=== PATIENT | female | born 1930 | race Caucasian/White ===

== ENCOUNTER 2017-10-05 17:41 | Inpatient (IN) | payer MEDICARE, OTHER ==
[~2017-10-05] VITALS: Ht 160 cm; Wt 55.3 kg
--- NOTE | ~2017-10-05 | PROC ---
[address] [address] PROCEDURE REPORT Name: CURTIS LIN Room: [address] IN .R.#: [id number] Admission: 10/05/17 Attend Phys: Hugo Aguilar Discharge: Date of : 32 Report #: [id number] THIS REPORT FOR: //name// For GI report, please see the Provation report in Perceptive 7 content. By: [facility] Records Staff RICH /DUKE
[~2017-10-05 17:41] MED LIST: ASPIR 8181 MG PO; BP MED; DIABETES MED; HYDROCODONE-AP1 EAC6; IMDUR 30 MG TAB30 M1 PO; LIPITOR 20 MG T20 M1 PO; LOPRESSOR25 PO; LOSARTAN-HCTZ1 EAC2 PO; METFORMIN HCL500 MG PO; NITROGLYCERIN0.4 MG SUBLING; NORCO 10-325 T1 EACH PO; PLAVIX 75 MG TA75 MG PO; TYLENOL325 MG PO; VALIUM2 MG PO
[2017-10-05 17:43] VITALS: BP 110/60
[2017-10-05 18:17] LABS: URINE BILIRUBIN NEGATIVE (Negative); URINE BLOOD NEGATIVE (Negative); URINE CLARITY CLEAR; URINE COLOR YELLOW; URINE GLUCOSE-RANDOM NEGATIVE (Negative); URINE KETONES TRACE (Negative); URINE LEUKOCYTES-REFLEX NEGATIVE (Negative); URINE NITRITE-REFLEX NEGATIVE (Negative); URINE PROTEIN NEGATIVE (Negative); URINE SPECIFIC GRAVITY >= 1.030 (1.005-1.030); URINE UROBILINOGEN 0.2 E.U./dl (0.2-1.0)
[2017-10-05 18:25] LABS: HEMATOCRIT 24.3 % (37.0-47.0); MCH 26.8 pg (26.0-34.0); MCHC 32.9 g/dL (28.0-37.0); MCV 81.6 fL (80.0-100.0); MPV 7.7 fl. (7.2-11.1); NUCLEATED RBCS 0 /100WBC; PLATELET COUNT* 299 thou/uL (150-400); RBC 2.97 mil/uL (4.20-5.00); RDW-CV 14.9 % (10.5-14.5); WBC 15.3 thou/uL (4.0-11.0)
[2017-10-05 18:47] LABS: INR 1.1; PROTIME 10.8 Seconds (9.20-11.50)
[2017-10-05 18:48] LABS: ANION GAP 8 mmol/L (7-16); BUN 47 mg/dL (7-18); CHLORIDE 105 mmol/L (98-107); CO2 26 mmol/L (21-32); CREATININE 0.9 mg/dL (0.6-1.3); GLUCOSE 272 mg/dL (70-99); POTASSIUM 4.2 mmol/L (3.5-5.1); SODIUM 139 mmol/L (136-145)
[2017-10-05 18:54] LABS: INFLUENZA A ANTIGEN None Detected (None Detect); INFLUENZA B ANTIGEN None Detected (None Detect)
[2017-10-05 19:02] LABS: ALBUMIN 3.3 g/dL (3.4-5.0); ALKALINE PHOSPHATASE 52 U/L (46-116); LIPASE 48 U/L (73-393); NT-PRO BRAIN NAT PEPTIDE 550 pg/mL (<300); SGOT 11 U/L (15-37); SGPT 13 U/L (30-65); TOTAL BILIRUBIN 0.3 mg/dL (<0.1-1.0); TOTAL PROTEIN 6.6 g/dL (6.4-8.2); TROPONIN-I LEVEL <0.06 ng/mL (<0.06)
[2017-10-05 19:05] LABS: ABSOLUTE EOSINOPHILS 0.2 thou/uL (0.0-0.7); ABSOLUTE LYMPHOCYTES 1.4 thou/uL (0.8-5.3); ABSOLUTE MONOCYTES 0.3 thou/uL (0.0-1.2); ABSOLUTE NEUTROPHILS 13.5 thou/uL (1.6-8.1)
[2017-10-05 19:06] LABS: PLATELET ESTIMATE ADEQUATE
[2017-10-05 19:07] LABS: HYPOCHROMASIA Occasional
[2017-10-05 21:18] VITALS: BP 121/60
[2017-10-05 22:07] LABS: HEMATOCRIT 20.5 % (37.0-47.0)
[2017-10-05 22:25] LABS: HEMOGLOBIN 6.7 gm/dL (12.0-15.0)
[2017-10-06] VITALS (8 sets, daily range): BP systolic 107–170; BP diastolic 42–87
--- NOTE | 2017-10-06 05:23 | NUR ---
PT ADMITTED FROM ER. HISTORY AND ASSESSMENT COMPLETE. PT ORIENTED TO ROOM, CALL LIGHT, AND BED CONTROLS. SR ON MONITOR. 2 UNITS PRBC'S INFUSED PER ORDER FOR HGB 6.6. PT TOLERATED WELL. CONTINUOUS PULSE OX IN PLACE WHILE BLOOD WAS INFUSING. PRN PAIN MEDICATION GIVEN PER PT REQUEST. O2 2L NC. FALL PRECAUTIONS IN PLACE INCLUDING BED ALARM. CALL LIGHT IN REACH. BED IN LOWEST POSITION.
[2017-10-06 06:22] LABS: HEMOGLOBIN 9.1 gm/dL (12.0-15.0)
--- NOTE | 2017-10-06 09:00 | NUR ---
PT IS TRACING SR ON THE MONITOR. VSS, ASSUMED CARE OF PT IN THE AM, ASSESSMENT PERFORMED AND CHARTED, FALL PRECAUTIONS IN PLACE AND CALL LIGHT IN REACH, PT IS A&O4 AND UP WITH ONE, HAS SOTO IN PLACE AND IS DRAINING, PT IS TRACING SR ON THE MONITOR AND HAS PAIN IN HER BACK AND LEGS, PT IS TO HAVE EDG ON DAY OF CARE, WILL FOLLOW WITH PLAN OF CARE.
--- NOTE | 2017-10-06 12:00 | NUR ---
MET WITH PT AND SON/JESSICA TO DISCUSS HOME SITUATION/DC PLANNING. PT LIVES ALONE, SON/JESSICA LIVES IN A MOBILE HOME ONE HER PROPERTY. PT STATES SHE IS INDEPENDENT AND ABLE TO DO HER OWN ADLS. COOKS, CLEANS AND MANAGES HER HOME. PT USES WALKER. 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 JESSICA CHECKS ON HER DAILY AND SON SAWYER CHECKS ON HER AND MANAGES PT'S FINANCES. PT STAETS SHE HAS A WILL BUT NOT SURE IF SHE HAS A DPOA. DISCUSSED AND ASSISTED IN FILLING OUT. ANSWERED PT'S QUESTIONS. SHE WANTED BOTH HER SONS ON IT. NOTARIZED, PLACED COPY ON CHART AND GAVE COPIES AND ORIGINAL TO JESSICA IN [place]. DISCUSSED POSSIBLE DC NEEDS INCLUDING HH. PT WORRIED ABOUT HER PETS. WILL FOLLOW
[2017-10-06 12:59] LABS: HEMATOCRIT 27.5 % (37.0-47.0); HEMOGLOBIN 9.5 gm/dL (12.0-15.0)
--- NOTE | 2017-10-06 16:16 | EKG ---
[place] [address] ELECTROCARDIOGRAM REPORT Name: CURTIS LIN Room: [address] ADM IN .R.#: [id number] Admission: 10/05/17 Attend Phys: Hugo Aguilar Discharge: Date of : 31 Report #: [id number] THIS REPORT FOR: //name// [facility] ED Test Date: 2017-10-05 Test Time: 18:13:25 Pat Name: CURTIS LIN Department: Room: [facility] Gender: F Warehouse Supervisor: Srinivasa REEDER : 1930 Requested By: Hugo Lugo Order Number: [id number] MD: William Andrade Measurements Intervals [place] Rate: 79 P: 48 CT: 147 QRS: -50 QRSD: 99 T: 111 QT: 380 QTc: 436 Interpretive Statements Sinus rhythm Atrial premature complex Left anterior fascicular block Abnormal R-wave progression, early transition Borderline repolarization abnormality Compared to ECG 11/07/2014 09:38:28 Atrial premature complex(es) now present Myocardial infarct finding no longer present T-wave abnormality no longer present Possible ischemia no longer present Prolonged QT interval no longer present Electronically Signed On 10-06-2017 16:16:32 BULBS FARMWORKER by William Andrade [email or web address] <ELECTRONICALLY SIGNED> By: William Andrade MD, [facility] 10/06/17 1616 12 12 William Andrade MD, [facility] /EPI
--- NOTE | 2017-10-06 18:24 | NUR ---
VSS, PT IS PROGRESSING TOWARDS GOAL, PT HAS COMPLETED EGD AND IS ON A CLD AT THIS TIME. HOURLY ROUNDS COMPLETED, PT HAS SOTO IN AND REFUSSES TO LET ME TAKE OUT CHARLES, HOURLY ROUNDS COMPLETED, PT IS TRACING SR ON THE MONITOR MONITOR ON RA AND UP WITH ONE AND IS INCONT,
[2017-10-07] VITALS: BP 137/58
[2017-10-07 01:06] LABS: HEMATOCRIT 24.3 % (37.0-47.0); HEMOGLOBIN 8.1 gm/dL (12.0-15.0)
[2017-10-07 04:00] VITALS: BP 127/49
[2017-10-07 05:17] LABS: HEMATOCRIT 24.6 % (37.0-47.0); HEMOGLOBIN 8.3 gm/dL (12.0-15.0); MCH 27.1 pg (26.0-34.0); MCHC 33.7 g/dL (28.0-37.0); MCV 80.2 fL (80.0-100.0); RBC 3.07 mil/uL (4.20-5.00); RDW-CV 15.6 % (10.5-14.5)
--- NOTE | 2017-10-07 05:17 | NUR ---
PT CARE ASSUMED AFTER REPORT. ASSESSMENT COMPLETE. SR/SB ON MONITOR. PROTONIX GTT INFUSING. SOTO TO DD STILL IN PLACE. PT REFUSES REMOVAL. DENIES PAIN. NO BLOODY STOOLS REPORTED OR OBSERVED. FALL PRECAUTIONS IN PLACE INCLUDING BED ALARM. CALL LIGHT IN REACH. BED IN LOWEST POSITION. PROGRESSING TOWARDS GOALS.
[2017-10-07 08:00] VITALS: BP 167/72
--- NOTE | 2017-10-07 08:00 | NUR ---
AM ASSESSMENT COMPLETE, DEFER TO COMPUTER CHARTING. DRY CLEANER PRESSER TRACKING SR/SB. ALERT ORIENTED, DENIES CHEST PAIN, NAUSEA OR ANY DISCOMFORT AT THIS TIME. IV PROTONIX INFUSING. HOB ELEVATED, CALL LIGHT WTIHIN REACH.
--- NOTE | 2017-10-07 11:24 | S ---
[place] [address] SURGICAL PATH RPT PROCEDURE Name: DENA LIN Room: [address] IN ..#: [id number] Admission: 10/05/17 Date of : 31 Discharge: Report #: [id number] Path Case #: [id number] PATHOLOGY REPORT COLLECTION DATE: 10/06/2017 RECEIVED DATE: 10/06/2017 SUBMITTING PHYS: Dr. An Aguilar OTHER PHYS: Dr. Fahad Jack SPECIMEN(S) RECEIVED: A.Gastric body B.Gastric fundus ulcer * * * * * * * * * * * * FINAL DIAGNOSIS: A. Gastric body: - Severe chronic and active gastritis with abundant Helicobacter pylori organisms, negative for granulomas and dysplasia. B. Gastric fundus ulcer: - Severe chronic and active gastritis with few Helicobacter pylori organisms, negative for granulomas and dysplasia. (GRACY:[facility]; 10/07/2017) PATHOLOGIST: Jose Nicholas M.D. REPORT ELECTRONICALLY SIGNED BY: Jose Nicholas M.D. DATE/TIME: 10/07/2017 11:23 * * * * * * * * * * * * GROSS PATHOLOGY: A. Received in formalin labeled "Dena Lin, gastric body," are 3 segments of combs soft tissue measuring 1.5 x 0.5 x 0.2 cm in aggregate dimensions and ranging from 0.1 to 0.5 cm in maximum dimension. The specimen is submitted entirely in cassette A1. B. Received in formalin labeled "Dena Chiles, gastric fundus ulcer," are 2 segments of combs soft tissue measuring 1.3 x 0.2 x 0.2 cm in aggregate dimensions and measuring 0.6 cm each in maximum dimension. The specimen is submitted entirely in cassette B1. ([facility]; 10/06/2017) CLINICAL HISTORY: None provided INITIAL CPT CODE(S): A; 01111, 32556 B; 38059, [address] [place] [address] SURGICAL PATH RPT PROCEDURE Name: DENA LIN Room: [address] IN [facility].#: [id number] Admission: 10/05/17 Date of : 31 Discharge: Report #: [id number] Path Case #: [id number] Professional services performed by [facility] at [facility], [facility] [address]. Technical services performed by [facility] at [address] [place] [address], [address], [place] [address]. [facility] [address] [place] [address] PHONE: [phone] DIRECTOR: Kendrick Fowler M.D. * * * END OF REPORT * * *
[2017-10-07 11:57] VITALS: BP 153/63
[2017-10-07 13:18] LABS: HEMATOCRIT 27.1 % (37.0-47.0); HEMOGLOBIN 9.1 gm/dL (12.0-15.0)
[2017-10-07 15:59] VITALS: BP 163/62
--- NOTE | 2017-10-07 16:02 | NUR ---
SENIOR NET ENGINEER TRACKING WITH NO CHANGE IN RHYTHM. IV PROTONIX INFUSING PER ORDERS. DIET ADVANCED TO FULL LIQUID, NO COMPLAINTS OF NAUSEA OR PAIN TO NURSING. FAMILY AT BEDSIDE VISITING. CALL LIGHT WITHIN REACH. WILL CONTINUE WITH PLAN OF CARE.
[2017-10-07 20:15] VITALS: BP 163/59
[2017-10-08] VITALS (7 sets, daily range): BP systolic 139–197; BP diastolic 56–92
[2017-10-08 01:12] LABS: HEMATOCRIT 23.6 % (37.0-47.0)
[2017-10-08 05:15] LABS: HEMATOCRIT 23.3 % (37.0-47.0); MCH 27.6 pg (26.0-34.0); MCHC 34.4 g/dL (28.0-37.0); MCV 80.1 fL (80.0-100.0); MPV 7.8 fl. (7.2-11.1); RBC 2.91 mil/uL (4.20-5.00); RDW-CV 15.7 % (10.5-14.5); WBC 6.8 thou/uL (4.0-11.0)
--- NOTE | 2017-10-08 05:26 | NUR ---
ASSUMED CARE AROUND 1930. PT A/OX4 AND PLEASANT. PT TEARFUL LAST NIGHT STATING SHE THOUGHT SHE WAS A BURDEN TO THE STAFF HERE, REASSURED PT THAT SHE WAS NOT AT ALL, APPEARED TO REST AFTER THAT. TELE MONITOR TRACING SR/SB WITH HR DOWN TO 50'S. ON ROOM AIR. PROTONIX GTT INFUSING. PT DENIED PAIN BUT TAKES NORCO AT HS FOR SLEEP PER PT. VSS. VOIDED PER TOILET, UP SBA. FULL LIQ DIET, TOLERATING WELL. NO CONCERNS VOICED. CALL LIGHT IN REACH, BEDALARM IN PLACE, WILL CONTINUE WITH PLAN OF CARE.
[2017-10-08 05:44] LABS: CREATININE 0.6 mg/dL (0.6-1.3); POTASSIUM 3.4 mmol/L (3.5-5.1)
--- NOTE | 2017-10-08 10:20 | NUR ---
PT'S MEDICAL CHART REVEIWED AND STATUS DISCUSSED W/ NSG. PT DEMO INDEPENDENT BED MOB SKILLS, MOD INDEP TRANSFERS AND GAIT W/ RW SUPPORT. SON PRESENT AND VOICES NO CONCERNS W/ DISCHARGE TO HOME. ACUTE SKILLED PT SERVICES ARE NOT INDICATED AT THIS TIME.
--- NOTE | 2017-10-08 11:20 | NUR ---
CONTINUE TO FOLLOW, PT STATES FEELING IMPROVED BUT STILL 'HUNGRY.' HOPES TO GO HOME TOMORROW. DISCUSSED DC PLAN WITH HER AND HH. PT IS IN AGREEMENT, DISCUSSED OPTIONS AND WOULD LIKE TO USE [facility]. CALLED AND FAXED INITIAL REFERRAL TO [facility]. THEY WILL NEED CALLED AND DC ORDERS FAXED TO THEM AT [facility] [phone] FAX [phone]
[2017-10-08 14:17] LABS: HEMATOCRIT 29.5 % (37.0-47.0); HEMOGLOBIN 9.8 gm/dL (12.0-15.0)
[2017-10-08 14:24] LABS: CALCIUM 8.5 mg/dL (8.5-10.1); CREATININE 0.7 mg/dL (0.6-1.3); MAGNESIUM 1.7 mg/dL (1.8-2.4); POTASSIUM 3.8 mmol/L (3.5-5.1)
--- NOTE | 2017-10-08 19:00 | NUR ---
RECEIVED REPORT. ASSUMED CARE OF PT AT 0730. VSS. O2 SAT 99% ON RA. PT A&O X4, A BIT ANXIOUS. METER MAINTENANCE PERSON IN PLACE TRACING SR. AM ASSESSMENT AND VITALS COMPLETED CHARTED. IV PATENT AND INFUSING PROTONIX. PT HAS DENIED PAIN OR DISCOMFORT THROUGHOUT THE SHIFT. PT DIET PROGRESSED TO REGULAR DIET. PT HAPPY ABOUT DIET PROGRESSION AND EATING WITHOUT ISSUE. PT HAD SMALL TARRY STOOL THIS AFTERNOON; PT VERY ANXIOUS ABOUT IT. DR VERNON NOTIFIED; NO NEW ORDERS RECEIVED. HGB STABLE. REASSURANCE AND EDUCATION GIVEN TO PT, PT FELT SOME BETTER AFTER DISCUSSION. PT UP SEVERAL TIMES TO BATHROOM WITH MINIMAL ASSISTANCE. PT WORKED WITH P.T. TODAY. PT SLOWLY PROGRESSING TOWARD GOALS. FALL PRECAUTIONS IN PLACE. CALL LIGHT IS WITHIN REACH, HOURLY ROUNDING PERFORMED.
[2017-10-09] VITALS (8 sets, daily range): BP systolic 151–180; BP diastolic 69–87
[2017-10-09 01:03] LABS: HEMATOCRIT 24.8 % (37.0-47.0); HEMOGLOBIN 8.3 gm/dL (12.0-15.0); MCH 27.5 pg (26.0-34.0); MCHC 33.7 g/dL (28.0-37.0); MCV 81.6 fL (80.0-100.0); MPV 7.5 fl. (7.2-11.1); RBC 3.04 mil/uL (4.20-5.00); RDW-CV 15.7 % (10.5-14.5); WBC 7.4 thou/uL (4.0-11.0)
[2017-10-09 01:41] LABS: ALBUMIN 2.4 g/dL (3.4-5.0); CALCIUM 8.1 mg/dL (8.5-10.1); CREATININE 0.7 mg/dL (0.6-1.3); MAGNESIUM 1.6 mg/dL (1.8-2.4); POTASSIUM 3.8 mmol/L (3.5-5.1); TOTAL BILIRUBIN 0.3 mg/dL (<0.1-1.0); TOTAL PROTEIN 4.8 g/dL (6.4-8.2)
--- NOTE | 2017-10-09 05:55 | NUR ---
ASSUMED CARE AROUND 1930. PT A/OX4 AND PLEASANT, APPEARED TO REST MOST THE NIGHT. TELE MONITOR TRACING SR/SB WITH HR DOWN TO 50'S. ON ROOM AIR. PROTONIX GTT INFUSING PER OCT. UP SBA WITH WALKER TO BR. FALL PRECAUTIONS IN PLACE. NO BM THIS SHIFT. DENIED ANY PAIN. BP SOMEWHAT ELEVATED THIS SHIFT BUT STABLE. SEE CHARTING. CALL LIGHT IN REACH, BEDALARM ON, WILL CONTINUE WITH PLAN OF CARE.
--- NOTE | 2017-10-09 08:00 | NUR ---
RECEIVED REPORT. ASSUMED CARE OF PT AT 0730. VSS. CARDIAC MONITORING IN PLACE SR. AM ASSESSMENT AND VITALS COMPLETED CHARTED. PT ALERT AND OREINTED. PT ON RA. IV PROTONIX GTT INFUSING. PT DENIES ANY COMPLAITNS OF PAIN OR DISCOMFORT THIS AM. PT IS TOLERTING DIET WELL. PT IS UP WITH STAND BY ASSITANCE WITH WALKER TO THE BATHROOM. PT REPORTS FEELING READY TO GO HOME TODAY. DISCUSSED PLAN OF CARE WTIH PT. PT COMMUNICATES UNDERSTANDING. PT'S MG BEING REPLACED PER PROTOCOL. CALL LIGHT IS WITHIN REACH. WILL CONTINUE TO MONTIOR FOR DURAITON OF SHIFT.
--- NOTE | 2017-10-09 17:23 | NUR ---
VSS. PT MADE MED-SURG STATUS. PT PROGRESSING TOWARDS GOALS. PT REMAINS ALERT AND OREITNED. PT WAS FRUSTRATED WITH NOT BEING ABLE TO DISCHARGE TODAY. REASSURANCE PROVIDED. PT INFORMED OF PLAN OF CARE. NO IV ACCESS. PT WAS UP TO CHAIR THIS SHIFT. PT PLANS TO DISCHARGE TOMORROW. CALL LIGHT IS WITHIN REACH. WILL CONTINUE TO MONITOR FOR DURAITON OF SHIFT.
[2017-10-10 04:00] VITALS: BP 134/46
[2017-10-10 06:00] LABS: HEMATOCRIT 24.2 % (37.0-47.0); HEMOGLOBIN 8.2 gm/dL (12.0-15.0); MCH 27.3 pg (26.0-34.0); MCHC 33.8 g/dL (28.0-37.0); MPV 7.8 fl. (7.2-11.1); RBC 2.99 mil/uL (4.20-5.00); RDW-CV 15.9 % (10.5-14.5); WBC 7.2 thou/uL (4.0-11.0)
--- NOTE | 2017-10-10 06:09 | NUR ---
ASSUMED CARE AROUND 1930. A/OX4 AND PLEASANT, STATING SHE'S READY TO GO HOME. ANXIOUS AT TIMES BUT APPEARED TO REST WELL TONIGHT. MED/SURG STATUS. VSS, DENIES PAIN. ON ROOM AIR. NO IV ACCESS. UP AD SALINA WITH WALKER, STEADY ON FEET. NO NEW CONCERNS VOICED. CALL LIGHT IN REACH, WILL CONTINUE WITH PLAN OF CARE.
[2017-10-10 06:27] LABS: CALCIUM 8.1 mg/dL (8.5-10.1); CREATININE 0.7 mg/dL (0.6-1.3); MAGNESIUM 1.7 mg/dL (1.8-2.4); POTASSIUM 3.8 mmol/L (3.5-5.1)
--- NOTE | 2017-10-10 08:00 | NUR ---
RECEIVED REPORT. ASSUMED CARE OF PT AT 0730. VSS. PT MED-SURG STATUS. PT ALERT AND ORIENTED X4. PT ON RA. NO IV ACCESS. PT DENIES ANY COMPLAINTS OF PAIN OR DISCOMFORT. PT IS UP INDEPNDENTLY WITH WALKER. PT REPORTS FEELING WELL TODAY AND READY FOR DISCHARGE. PT INFORMED OF PLAN OF CARE. CALL LIGHT IS WITHIN REACH .WILL CONTINUE TO MONITOR.
[2017-10-10 08:04] VITALS: BP 158/81
[2017-10-10] MEDS ORDERED: PROTONIX40 M1 PO (13:03)
--- NOTE | 2017-10-10 13:46 | NUR ---
DISCHARGE ORDERS RECEIVED AND PREPARED. IV AND CARDIAC MONITORING DISCONTINUED. PT EDUCATED ON DISCHARGE INSTRUCTIONS. PT COMMUNICATES UNDERSTANDING. PT GIVEN COPY OF DISCHARGE PAPERWORK. SCRIPTS CALLED INTO PT'S PHARMCY. PT'S PERSONAL BELONGINGS GATHERED. MEDICATION BROUGHT UP FROM PHARMACY.
--- NOTE | 2017-10-28 14:50 | CON ---
[address] [address] CONSULTATION Name: CURTIS LIN Room: [address] IN .R.#: [id number] Admission: 10/05/17 Attend Phys: Hugo Aguilar Discharge: 10/10/17 Date of : 31 Report #: [id number] THIS REPORT FOR: //name// CC: Candice Marti DATE OF SERVICE: 10/06/2017 ADDENDUM This is an 87-year-old female with no previous history of endoscopic evaluation who presented to hospital with severe anemia. The patient apparently has had dark stool yesterday prior to admission. Her hemoglobin found to be around 6.9. She was transfused with 2 units of packed RBC and her hemoglobin is around 9. She complains of lot of back pain and neck pain and reports that she takes pain medication regularly. She also reports anorexia and weakness and weight loss of 20 pounds. We will go ahead and perform an upper endoscopy, and if this is negative, we may consider colonoscopy. The patient is agreeable with plan. <ELECTRONICALLY SIGNED> By: An Aguilar MD 10/28/17 1450 1558 0450An Aguilar MD /nt
--- NOTE | 2017-10-28 14:50 | CON ---
[address] [address] CONSULTATION Name: CURTIS LIN Room: [address] IN M.R.#: [id number] Admission: 10/05/17 Attend Phys: Hugo Aguilar Discharge: 10/10/17 Date of : 31 Report #: [id number] THIS REPORT FOR: //name// CC: Candice Jack DO Fahad Marti DICTATED BY: Deb Agrawal [facility] DATE OF SERVICE: 10/06/2017 Please note at the time of this dictation, the patient was seen and physically examined by myself. REASON FOR CONSULTATION: GI bleed. HISTORY OF PRESENT ILLNESS: This is an 87-year-old female who presented to the Emergency Room with an abrupt onset of weakness. She called EMS due to increased weakness while she was sitting on the toilet and EMS noted that she had some really dark red to black stool that was noted in the toilet. She also had a syncopal episode earlier in the day as well. She has not been eating or drinking much over the last several days and she does complain of some epigastric discomfort. The patient has never had an EGD or colonoscopy done in the past. She does state that she has not noticed that her stools are dark, but she does not pay any attention to that. She states she has not had any nausea or any vomiting at this time. She lost her 2 years ago and over the last year and her son is agreeable that she has just not been eating and taking care of herself like she should. ALLERGIES: No known drug allergies. MEDICATIONS: From home include Valium, Glucophage, Lipitor, aspirin, Plavix, Nitrostat, Tylenol, Imdur, Lopressor and losartan. PAST MEDICAL HISTORY: Hypertension, diabetes, restless legs syndrome, coronary artery disease. PAST SURGICAL HISTORY: Hysterectomy, back surgery, and had a stent placed in 2015. FAMILY HISTORY: Negative for any GI or female cancers. SOCIAL HISTORY: She lives at home alone and her son's check on her. Denies any tobacco, alcohol or illegal drug use at this time. REVIEW OF SYSTEMS: Twelve-point review [place] [address] CONSULTATION Name: CURTIS LIN Room: [address]#: [id number] Admission: 10/05/17 Attend Phys: Hugo Aguilar Discharge: 10/10/17 Date of : 31 Report #: [id number] except what is mentioned in the HPI. PHYSICAL EXAMINATION: VITAL SIGNS: Temperature 36.8, pulse 82, respirations 18, blood pressure 157/67. HEART: Regular rate and rhythm with murmur noted. LUNGS: Diminished, but clear. ABDOMEN: Soft, positive bowel sounds in all 4 quadrants with some epigastric tenderness noted to palpation. LABORATORY DATA: Hemoglobin on admission was 9, she fell down to 6.7, got 2 units of blood, she is now up to 9.1; hematocrit 27; white count of 15.3; platelets 299. Sodium 139, potassium 4.2, chloride 105, CO2 26, BUN is 47, creatinine 0.9, GFR is 59 and glucose is 272. PT is 10.8, INR is 1.1. IMPRESSION: 1. Gastrointestinal bleed, upper. 2. Melanotic stool. 3. Acute anemia. 4. Leukocytosis. 5. Anticoagulant therapy, Plavix secondary to stents. 6. Weight loss over the past year. PLAN: 1. EGD today with Dr. Aguilar. 2. Labs tomorrow CBC and CMP. 3. Further recommendations to be made once the procedure has been performed. Thank you for allowing us to participate in this patient's care. Please do not hesitate to call with any questions in regard to this consult. <ELECTRONICALLY SIGNED> By: An Aguilar MD 10/28/17 1450 1229 1941An Aguilar MD /nt
== END 2017-10-10 14:34 | disposition home health service (06) | DRG 811 ==
LOC: M.ERS 17:41 → M.TBA-ER 18:49 → M.2W 18:49
PROVIDERS: Emergency Medicine; Family Medicine; Internal Medicine Gastroenterology; Nurse Practitioner Adult Health; ADMIT Internal Medicine
PROC: 0DB68ZX Excision of Stomach, Via Natural or Artificial Opening Endoscopic, Diagnostic (ICD-10-PCS; principal; 2017-10-06)
PROC: 30233N1 Transfusion of Nonautologous Red Blood Cells into Peripheral Vein, Percutaneous Approach (ICD-10-PCS; 2017-10-06)
DX: D62 Acute posthemorrhagic anemia (principal); K25.0 Acute gastric ulcer with hemorrhage; I10 Essential (primary) hypertension; E11.9 Type 2 diabetes mellitus without complications; G25.81 Restless legs syndrome; I25.10 Atherosclerotic heart disease of native coronary artery without angina pectoris; Z60.2 Problems related to living alone; K44.9 Diaphragmatic hernia without obstruction or gangrene; K29.70 Gastritis, unspecified, without bleeding; E87.6 Hypokalemia; D64.9 Anemia, unspecified; Z79.01 Long term (current) use of anticoagulants; Z95.5 Presence of coronary angioplasty implant and graft; Z90.710 Acquired absence of both cervix and uterus; I25.2 Old myocardial infarction

== ENCOUNTER 2017-11-23 05:50 | Inpatient (IN) | payer MEDICARE, OTHER ==
[~2017-11-23] VITALS: Ht 152.4 cm; Wt 69.9 kg
[~2017-11-23 05:50] MED LIST changes: +PROTONIX40 M1 PO
[2017-11-23 05:53] VITALS: BP 210/110
[2017-11-23 06:37] LABS: HEMATOCRIT 34.9 % (37.0-47.0); HEMOGLOBIN 11.4 gm/dL (12.0-15.0); MCH 25.7 pg (26.0-34.0); MCHC 32.6 g/dL (28.0-37.0); MCV 78.7 fL (80.0-100.0); MPV 7.4 fl. (7.2-11.1); NUCLEATED RBCS 0 /100WBC; PLATELET COUNT* 304 thou/uL (150-400); RBC 4.43 mil/uL (4.20-5.00); RDW-CV 16.3 % (10.5-14.5); WBC 11.3 thou/uL (4.0-11.0)
[2017-11-23 06:42] LABS: URINE BILIRUBIN NEGATIVE (Negative); URINE BLOOD NEGATIVE (Negative); URINE CLARITY CLEAR; URINE COLOR YELLOW; URINE GLUCOSE-RANDOM NEGATIVE (Negative); URINE KETONES TRACE (Negative); URINE LEUKOCYTES-REFLEX NEGATIVE (Negative); URINE NITRITE-REFLEX NEGATIVE (Negative); URINE PROTEIN NEGATIVE (Negative); URINE SPECIFIC GRAVITY 1.015 (1.005-1.030); URINE UROBILINOGEN 0.2 E.U./dl (0.2-1.0)
--- NOTE | 2017-11-23 06:46 | NUR ---
Unable to start an IV times 6 attempts. Pt refuses further attempts
[2017-11-23 06:48] LABS: ANION GAP 9 mmol/L (7-16); BUN 11 mg/dL (7-18); CALCIUM 9.3 mg/dL (8.5-10.1); CHLORIDE 101 mmol/L (98-107); CO2 25 mmol/L (21-32); CREATININE 0.8 mg/dL (0.6-1.3); GLUCOSE 157 mg/dL (70-99); POTASSIUM 3.8 mmol/L (3.5-5.1); SODIUM 135 mmol/L (136-145)
[2017-11-23 06:49] LABS: INR 1.1; PROTIME 10.7 Seconds (9.20-11.50)
[2017-11-23 06:58] LABS: ALBUMIN 3.5 g/dL (3.4-5.0); ALKALINE PHOSPHATASE 85 U/L (46-116); LIPASE 48 U/L (73-393); NT-PRO BRAIN NAT PEPTIDE 5445 pg/mL (<300); SGOT 12 U/L (15-37); SGPT 14 U/L (30-65); TOTAL BILIRUBIN 0.6 mg/dL (<0.1-1.0); TOTAL PROTEIN 7.5 g/dL (6.4-8.2); TROPONIN-I LEVEL <0.06 ng/mL (<0.06)
[2017-11-23 07:02] LABS: ABSOLUTE LYMPHOCYTES 0.9 thou/uL (0.8-5.3); ABSOLUTE MONOCYTES 0.5 thou/uL (0.0-1.2); ABSOLUTE NEUTROPHILS 9.9 thou/uL (1.6-8.1); PLATELET ESTIMATE ADEQUATE
[2017-11-23 07:03] LABS: ANISOCYTOSIS 1+; POIKILOCYTOSIS 1+
--- NOTE | 2017-11-23 08:16 | NUR ---
RAYO AND OKSANA NOTIFIED UPON PT RETURN FROM CT. PT WAS NOT CONNECTED TO MONITOR RAYO WAS TAKING HER TO THE RESTROOM
--- NOTE | 2017-11-23 10:00 | NUR ---
VSS, ASSUMED CARE OF PT FROM ED, ASSESSMENT PERFORMED AND CHARTED, FALL PRECAUTIONS IN PLACE AND CALL LIGHT IN REACH, PT IS A&O4 AND UP WITH STAND BY, PT HAS PAIN IN HER ADM, TRACING SR ON THE MONITOR AND ON RA, PT GOAL IS TO DECREASE PAIN, WILL FOLLOW WITH PLAN OF CARE.
[2017-11-23 10:42] VITALS: BP 173/108
--- NOTE | 2017-11-23 11:56 | NUR ---
VSS, ASSUMED CARE OF PT FROM ED, ASSESSMENT PERFORMED AND CHARTED, FALL PRECAUTIONS IN PLACE AND CALL LIGHT IN REACH, PT IS A&O4, TRACING SR ON THE MONITOR, ON RA AND IS UP WITH STAND BY. PT GOAL IS TO DECREASE CHEST PAIN AND SIT UP TO CHAIR FOR MEALS, PT STATES PAIN IN CHEST AND ABDOMINE, WILL FOLLOW WITH PLAN OF CARE.
--- NOTE | 2017-11-23 14:51 | EKG ---
[place] [address] ELECTROCARDIOGRAM REPORT Name: CURTIS LIN Room: [address] ADM IN .R.#: [id number] Admission: 11/23/17 Attend Phys: Asif Reyna MD Discharge: Date of : 31 Report #: [id number] THIS REPORT FOR: //name// [facility] ED Test Date: 2017-11-23 Test Time: 06:02:30 Pat Name: CURTIS LIN Department: Room: [facility] Gender: F Senior Engineering Tech: JUAN : 1930 Requested By: Lorenza Hearn Order Number: [id number] MD: Ruben Condon Measurements Intervals [place] Rate: 79 P: 37 MS: 154 QRS: -45 QRSD: 105 T: 32 QT: 405 QTc: 465 Interpretive Statements Sinus rhythm Left anterior fascicular block Abnormal R-wave progression, late transition Left ventricular hypertrophy Compared to ECG 10/05/2017 18:13:25 Left ventricular hypertrophy now present Atrial premature complex(es) no longer present Electronically Signed On 11-23-2017 14:51:09 CDT by Ruben Condon [email or web address] <ELECTRONICALLY SIGNED> By: Ruben Condon MD, [facility] 11/23/17 1451 0602 0602 Ruben Condon MD, [facility] /EPI
--- NOTE | 2017-11-23 15:24 | 2DMMODE ---
[place] [address] 2 D/M-MODE ECHOCARDIOGRAM Name: CURTIS LIN Room: [address] IN [facility]#: [id number] Admission: 11/23/17 Attend Phys: Asif Reyna, Discharge: Date of : 31 Date of Service: 11/23/17 1524 Report #: [id number] THIS REPORT FOR: //name// APPROVED REPORT Study performed: 11/23/2017 14:09:28 EXAM: Comprehensive 2D, Doppler, and color-flow Echocardiogram Patient Location: In-Patient Room #: [facility] Status: routine BSA: 1.57 HR: 68 bpm BP: 173/108 mmHg Rhythm: NSR Other Information Study Quality: Good Indications Congestive Heart Failure 2D Dimensions LVEF(%): 54.56 (>50%) IVSd: 13.86 (7-11mm) LVOT Diam: 19.92 (18-24mm) LVDd: 47.54 mm PWd: 12.20 (7-11mm) Ascending Ao: 32.82 (22-36mm) LVDs: 34.10 (25-40mm) Aortic Root: 28.76 mm Mercado's LVEF: 54.56 % Volumes Left Atrial Volume (Systole) LA ESV Index: 41.10 mL/m2 Aortic Valve AoV Peak Omar.: 3.63 m/s AO Peak Gr.: 52.59 mmHg LVOT Max P.92 mmHg AO Mean Gr.: 33.55 mmHg LVOT Mean P.79 mmHg LVOT Max V: 0.99 m/s AO V2 VTI: 82.77 cm LVOT Mean V: 0.61 m/s CAROLEE (VTI): 0.83 cm2 LVOT V1 VTI: 21.98 cm Mitral Valve E/A Ratio: 0.64 [place] [address] 2 D/M-MODE ECHOCARDIOGRAM Name: CURTIS LIN Room: [address] IN [facility].#: [id number] Admission: 11/23/17 Attend Phys: Asif Reyna, Discharge: Date of : 31 Date of Service: 11/23/17 1524 Report #: [id number] MV Decel. Time: 151.25 ms MV E Max Omar.: 1.03 m/s MV PHT: 43.86 ms MVA (PHT): 5.02 cm2 TDI E/Lateral E': 14.71 E/Medial E': 20.60 Medial E' Omar.: 0.05 m/s Lateral E' Omar.: 0.07 m/s Pulmonary Valve PV Peak Omar.: 1.03 m/s PV Peak Gr.: 4.27 mmHg Tricuspid Valve TR Peak Gr.: 27.62 mmHg RVSP: 32.00 mmHg Left Ventricle The left ventricle is normal size. There is normal LV segmental wall motion. Mild concentric left ventricular hypertrophy. Left ventricular systolic function is normal. LVEF is 55-60%. Grade I - abnormal relaxation pattern. Right Ventricle The right ventricle is normal size. The right ventricular systolic function is normal. Atria Left atrium is mild to moderately dilated. The right atrium size is normal. Aortic Valve The Aortic valve is sclerotic. Mild aortic regurgitation. Severe aortic stenosis. Mitral Valve There is mitral annular calcification. Moderate mitral regurgitation. No evidence of mitral valve stenosis. Tricuspid Valve The tricuspid valve is normal in structure. Trace tricuspid regurgitation. The RVSP is 30-35 mmHg. Pulmonic Valve The pulmonary valve is normal in structure. There is no pulmonic [place] [address] 2 D/M-MODE ECHOCARDIOGRAM Name: CURTIS LIN Room: [address]#: [id number] Admission: 11/23/17 Attend Phys: Asif Reyna, Discharge: Date of : 32 Date of Service: 11/23/17 1524 Report #: [id number] Great Vessels The aortic root is normal in size. IVC is normal in size and collapses with >50% inspiration Pericardium There is no pericardial effusion. <Conclusion> The left ventricle is normal size. Mild concentric left ventricular hypertrophy. Left ventricular systolic function is normal. LVEF is 55-60%. Grade I - abnormal relaxation pattern. Left atrium is mild to moderately dilated. Mild aortic regurgitation. Severe aortic stenosis. Moderate mitral regurgitation. Trace tricuspid regurgitation. The RVSP is 30-35 mmHg. <ELECTRONICALLY SIGNED> By: David Ham MD, [facility] 11/23/17 1524 1524 1524 David Ham MD, FACC /INF
[2017-11-23 16:12] VITALS: BP 151/73
--- NOTE | 2017-11-23 16:31 | EKG ---
[place] [address] ELECTROCARDIOGRAM REPORT Name: CURTIS LIN Room: [address] ADM IN M.R.#: [id number] Admission: 11/23/17 Attend Phys: Asif Reyna MD Discharge: Date of : 31 Report #: [id number] THIS REPORT FOR: //name// [facility] Test Date: 2017-11-23 Test Time: 16:09:22 Pat Name: CURTIS LIN Department: Room: [address] Gender: F Recreation Facilities Supervisor: AGUSTÍN : 1930 Requested By: Collin العراقي Order Number: [id number] MD: Ruben Condon Measurements Intervals [place] Rate: 69 P: 21 MO: 143 QRS: -50 QRSD: 101 T: 28 QT: 349 QTc: 374 Interpretive Statements Sinus rhythm Ventricular premature complex Left anterior fascicular block Abnormal R-wave progression, late transition Left ventricular hypertrophy Compared to ECG 11/23/2017 06:02:30 Ventricular premature complex(es) now present Electronically Signed On 11-23-2017 16:31:21 CDT by Ruben Condon [email or web address] <ELECTRONICALLY SIGNED> By: Ruben Condon MD, [facility] 11/23/17 1631 1609 1609 Ruben Condon MD, [facility] /EPI
--- NOTE | 2017-11-23 17:28 | NUR ---
VSS, PT IS PROGRESSING TOWARDS GAOL, PT IS ASLEEP IN BED WILL CALL LIGHT IN REACH AND FALL PRECAUTIONS IN PLACE, PT IS TRACING SR ON THE MONITOR, ON RA, A&O4 UP WITH ONE AND CAN BE TEARFUL AT TIMES, WILL FOLLOW WITH PLAN OF CARE AND HOURLY ROUNDS,
[2017-11-23 20:00] VITALS: BP 156/60
[2017-11-24] VITALS: BP 143/56
[2017-11-24 04:00] VITALS: BP 167/72
[2017-11-24 05:03] LABS: ABSOLUTE LYMPHOCYTES 0.7 thou/uL (0.8-5.3); ABSOLUTE MONOCYTES 1.2 thou/uL (0.0-1.2); ABSOLUTE NEUTROPHILS 11.4 thou/uL (1.6-8.1); BASOPHILS 0.3 %; EOSINOPHILS 0.1 %; HEMATOCRIT 30.9 % (37.0-47.0); HEMOGLOBIN 10.3 gm/dL (12.0-15.0); MCH 25.8 pg (26.0-34.0); MCHC 33.2 g/dL (28.0-37.0); MCV 77.9 fL (80.0-100.0); MONOCYTES 8.8 %; MPV 7.8 fl. (7.2-11.1); NUCLEATED RBCS 0 /100WBC; PLATELET COUNT* 280 thou/uL (150-400); POLYS 85.8 %; RBC 3.97 mil/uL (4.20-5.00); WBC 13.3 thou/uL (4.0-11.0)
[2017-11-24 05:07] LABS: CALCIUM 8.6 mg/dL (8.5-10.1); CREATININE 0.8 mg/dL (0.6-1.3); POTASSIUM 3.5 mmol/L (3.5-5.1)
--- NOTE | 2017-11-24 05:31 | NUR ---
PT CARE ASSUMED AFTER REPORT. ASSESSMENT COMPLETE. SR ON MOITOR. DENIES PAIN. UP WITH ASSIST X1 TO BSC. FALL PRECAUTIONS IN PLACE INCLUDING BED ALARM. IVF INFUSING. PT REPORTS CONTINUED WEAKNESS. CALL LIGHT IN REACH. BED IN LOWEST POSITION. SLOW TO PROGRESS TOWARDS GOALS.
[2017-11-24 10:15] VITALS: BP 151/62
[2017-11-24 12:07] VITALS: BP 130/66
--- NOTE | 2017-11-24 13:58 | NUR ---
RECEIVED PT CARE 0700. PT IS ALERT AND ORIENTED X4. HARD OF HEARING. VSS. TOE POUNDER TRACING SR. PATIENT DENIES ANY SOA. O2 SAT 98% ON ROOM AIR. C/O BILATERAL LOWER ABDOMINAL PAINS. PRN PAIN MEDICATION GIVEN WITH GOOD RELIEF. IV CLOTTED OFF THIS AFTERNOON. INFUSION NURSE ON FLOOR TO PLACE NEW IV WITH ULTRASOUND AFTER MANY NURSE ATTEMPTS. AM ASSESSMENT CHARTED. MEDS PER OCT. NPO FOR SURGERY/GI/CARDIOLOGY CONSULTATIONS TO DETERMINE WHEN PATIENT CAN GO TO SURGERY FOR CHOLECYSTECTOMY. GI AND CV GAVE THEIR RECOMMENDATIONS. NOTIFIED SURGERY. RECEIVED ORDERS TO ADVANCE PATIENT TO A CLEAR LIQUID DIET IF TOLERATED AND POSSIBLE SURGERY ON WEDNESDAY. CALL LIGHT WITHIN REACH. WILL CONTINUE TO MONITOR.
--- NOTE | 2017-11-24 16:24 | NUR ---
CM ASSESSMENT: Pt is A&O. Pt's youngest son lives at home with her. Pt normally independent with ADLs, continues to cook and clean. Children provide transportation to run errands. Pt has a walker and cane at home that she uses, also has a wc in the basement, but hasn't need to use that to date. No home o2. No hx of SNF. Son in room and believes that Pt will need HH at or. CM to arrange at dc. Following.
[2017-11-24 16:54] VITALS: BP 128/63
--- NOTE | 2017-11-24 19:09 | NUR ---
PATIENT PROGRESSING TOWARDS GOALS. PAIN CONTROLLED WITH PRN PAIN MEDICATIONS. NO COMPLAINTS OF SOA. ADVANCED DIET TOLEATED TO LOW FAT. TOLERATING THE LOW FAT DIET WELL WITHOUT NAUSEA OR VOMITING. UP IN THE CHAIR MOST OF THE AFTERNOON. WILL CONTINUE PLAN OF CARE.
[2017-11-24 20:00] VITALS: BP 133/61
[2017-11-25 03:55] VITALS: BP 132/64
--- NOTE | 2017-11-25 05:21 | NUR ---
PT CARE ASSUMED AFTER REPORT. ASSESSMENT COMPLETE. M/S STATUS. IVF INFUSING. DENIES PAIN. PT FORGETFUL. UP WITH STB TO BATHROOM. FALL PRECAUTIONS IN PLACE INCLUDING BED ALARM. CALL LIGHT IN REACH. BED IN LOWEST POSITION. PROGRESSING TOWARDS GOALS.
[2017-11-25 07:30] VITALS: BP 141/70
[2017-11-25 07:57] LABS: HEMATOCRIT 27.5 % (37.0-47.0); HEMOGLOBIN 9.2 gm/dL (12.0-15.0); MCH 25.9 pg (26.0-34.0); MCHC 33.4 g/dL (28.0-37.0); MCV 77.5 fL (80.0-100.0); MPV 7.3 fl. (7.2-11.1); NUCLEATED RBCS 0 /100WBC; PLATELET COUNT* 244 thou/uL (150-400); RBC 3.54 mil/uL (4.20-5.00); RDW-CV 16.2 % (10.5-14.5); WBC 11.6 thou/uL (4.0-11.0)
[2017-11-25 08:12] LABS: ALBUMIN 2.5 g/dL (3.4-5.0); CREATININE 0.7 mg/dL (0.6-1.3); MAGNESIUM 1.6 mg/dL (1.8-2.4); PHOSPHORUS* 2.3 mg/dL (2.5-4.9); POTASSIUM 3.5 mmol/L (3.5-5.1); TOTAL BILIRUBIN 0.6 mg/dL (<0.1-1.0); TOTAL PROTEIN 5.7 g/dL (6.4-8.2)
[2017-11-25 08:24] LABS: ABSOLUTE LYMPHOCYTES 0.5 thou/uL (0.8-5.3); ABSOLUTE MONOCYTES 0.6 thou/uL (0.0-1.2); ABSOLUTE NEUTROPHILS 10.6 thou/uL (1.6-8.1); ANISOCYTOSIS 1+; HYPOCHROMASIA 2+; PLATELET ESTIMATE ADEQUATE
--- NOTE | 2017-11-25 15:28 | NUR ---
VSS, ASSUMED CARE IN THE AM, ASSESSMENT PERFORMED AND CHARTED, FALL PRECAUTIONS IN PLACE AND CALL LIGHT IN REACH, PT IS A&O4 AND IS UP WITH ONE, PT SAO2 94% ON RA AND SHE DENIES ANY PAIN AT THIS TIME, pt goal is to sit UP IN CHAIR AND WORK WITH PT/OT AND WILL FOLLOW WITH PLAN OF CARE.
[2017-11-25 17:01] VITALS: BP 125/67
--- NOTE | 2017-11-25 18:16 | CON ---
[address] [address] CONSULTATION Name: CURTIS LIN Room: [address] IN .R.#: [id number] Admission: 11/23/17 Attend Phys: Asif eRyna MD Discharge: Date of : 31 Report #: [id number] THIS REPORT FOR: //name// CC: Asif Jack DO DATE OF SERVICE: 11/23/2017 REASON FOR CONSULT: Chest pain and coronary artery disease. HISTORY OF PRESENT ILLNESS: The patient is an 87-year-old white female who was admitted to the hospital with acute cholecystitis. She reports having ongoing upper abdominal and chest pain diffusely for at least a day. With that she had shortness of breath. She came to the Emergency Room and the pain was unrelenting. She has been kept n.p.o. here in the hospital and given pain medication. With that, she has had a significant resolution in her symptoms. Through this, her troponins have been less than 0.06 on 3 separate occasions. EKG shows sinus rhythm with no significant ST or T-wave abnormality. She does have a history of coronary artery disease with previous percutaneous coronary intervention to the posterolateral LV branch of the right coronary artery in 2014. She has had no intervention since that time. By echocardiogram today, she has normal LV systolic function. She has mild aortic insufficiency and severe aortic stenosis. PAST MEDICAL HISTORY: 1. Coronary artery disease. 2. Hypertension. 3. Type 2 diabetes mellitus. PAST SURGICAL HISTORY: 1. Hysterectomy. 2. Back surgery. 3. Percutaneous coronary intervention as outlined above. FAMILY HISTORY: Noncontributory. SOCIAL HISTORY: The patient is nonsmoker lifelong. PHYSICAL EXAMINATION: VITAL SIGNS: Stable. Blood pressure 151/73, pulse 72 and regular. GENERAL: This is an elderly white female, who is not in distress. HEENT: Extraocular muscles intact. Mucous membranes moist. Dentition poor. NECK: Shows no [place] [address] CONSULTATION Name: CURTIS LIN Room: [address]#: [id number] Admission: 11/23/17 Attend Phys: Asif Reyna MD Discharge: Date of : 31 Report #: [id number] CHEST: Reveals clear lung simpson. CARDIOVASCULAR: Reveals a regular rhythm with grade 2/6 systolic ejection murmur. ABDOMEN: Reveals a diffusely tender abdomen without rebound. Bowel sounds present. EXTREMITIES: Shows chronic venous stasis changes noted. The patient has minimal edema at this time. LABORATORY DATA: Reviewed and are significant for troponins of less than 0.06 on 3 separate occasions. Chest x-ray on admission showed no acute cardiopulmonary abnormality. CT of the abdomen and pelvis showed gallstones with distended gallbladder and wall thickening suggestive of cholecystitis. IMPRESSION AND RECOMMENDATIONS: 1. Coronary artery disease, presently stable. She is having no symptoms at that time to suggest acute coronary syndrome. Despite prolonged chest and abdominal discomfort, her troponins remained unremarkable and EKG is normal. 2. Severe aortic stenosis by echocardiogram. We will follow clinically. The patient does not have any symptoms related to her aortic stenosis at this time. 3. Acute cholecystitis. The patient is presently stable. Further treatment per primary physicians and General Surgery. 4. Hypertension. Blood pressure adequately controlled presently. 5. Possible hyperlipidemia. Fasting lipid profile pending. At this point in time, the patient does not appear to have any symptoms to suggest acute coronary syndrome. Despite her severe aortic stenosis, she has normal cardiac enzymes. I believe that her symptoms are primarily related to acute cholecystitis. Should she require surgical intervention, would be cautious with her severe aortic stenosis. Would recommend adequate volume going into surgery. Would recommend perioperative beta blockade as well. Would suggest metoprolol 25 mg b.i.d. or IV 5 mg q. 6 hours. <ELECTRONICALLY SIGNED> By: David Ham MD, FACC 11/25/17 [phone] [id number] Ham MD, FACC /nt
--- NOTE | 2017-11-25 18:54 | NUR ---
VSS, PT IS PROGRESSING TOWARDS GOAL, PT WAS UP IN CHAIR FOR LUNCH AND DINNER, PT IS ON RA AND IS MED-SURG STATUS, HOURLY ROUNDS COMPLETED, PT IS TEARFUL, WILL FOLLOW WITH PLAN
[2017-11-25 20:00] VITALS: BP 144/59
[2017-11-26] VITALS: BP 150/63
--- NOTE | 2017-11-26 05:26 | NUR ---
PT CARE ASSUMED AFTER REPORT. ASSESSMENT COMPLETE. MED/SURG PT. IVF INFUSING. PRN PAIN MEDICATION GIVEN PER PT REQUEST. NPO SINCE MIDNIGHT FOR SURGERY TODAY. UP WITH ASSIST TO BATHROOM. CALL LIGHT IN REACH. BED IN LOWEST POSITION. PROGRESSING TOWARDS GOALS.
[2017-11-26 06:20] LABS: MAGNESIUM 1.8 mg/dL (1.8-2.4); PHOSPHORUS* 2.9 mg/dL (2.5-4.9)
[2017-11-26 07:30] VITALS: BP 139/71
[2017-11-26 11:16] VITALS: BP 139/71
[2017-11-26 11:28] VITALS: BP 158/62
[2017-11-26 12:05] LABS: ABSOLUTE BASOPHILS 0.1 thou/uL (0.0-0.2); ABSOLUTE EOSINOPHILS 0.2 thou/uL (0.0-0.7); ABSOLUTE LYMPHOCYTES 1.1 thou/uL (0.8-5.3); ABSOLUTE MONOCYTES 0.8 thou/uL (0.0-1.2); ABSOLUTE NEUTROPHILS 7.3 thou/uL (1.6-8.1); BASOPHILS 0.6 %; EOSINOPHILS 2.3 %; HEMATOCRIT 29.3 % (37.0-47.0); HEMOGLOBIN 9.5 gm/dL (12.0-15.0); LYMPHOCYTES 11.3 %; MCH 25.9 pg (26.0-34.0); MCHC 32.3 g/dL (28.0-37.0); MCV 80.1 fL (80.0-100.0); MONOCYTES 8.8 %; MPV 8.5 fl. (7.2-11.1); NUCLEATED RBCS 0 /100WBC; PLATELET COUNT* 241 thou/uL (150-400); RBC 3.66 mil/uL (4.20-5.00); RDW-CV 16.5 % (10.5-14.5); WBC 9.4 thou/uL (4.0-11.0)
[2017-11-26 12:08] LABS: CALCIUM 8.1 mg/dL (8.5-10.1); POTASSIUM 4.4 mmol/L (3.5-5.1)
--- NOTE | 2017-11-26 12:21 | NUR ---
Pt scheduled to have lap deny today, family continues to want HH [facility] and want to use [facility] p:[phone], f:[phone]. CM faxed initial referral, orders will need to be faxed when available at [facility].
--- NOTE | 2017-11-26 12:28 | NUR ---
RECEIVED PT CARE 0700. PT IS ALERT AND ORIENTED X4. VSS. PATIENT UP AMBULATORY WITH ASSIST X1 TO RESTROOM THIS AM. SHE DENIES ANY SOA. O2 SAT 96% ON ROOM AIR. HELD ALL ORAL MEDICATIONS THIS AM, PATIENT STATES SHE NEEDS APPLESAUCE TO BE ABLE TO SWALLOW PILLS ESPECIALLY LARGE PILLS. PATIENT BECAME ANXIOUS THIS AM AND BECAME VERY TEARFUL AND FRUSTRATED. IV INFILTRATED IN LEFT UPPER ARM. IVF STOPPED AND REMOVED IV. PRN ORAL ATIVAN GIVEN X1 PER DR HARTMAN. PATIENT WAS ABLE TO SWALLOW A SMALL PILL WITH A SIP OF WATER. INFUSION LAB NOTIFIED ABOUT PATIENTS IV. PRE OP CHECKLIST COMPLETED AND ON FRONT OF CHART. CONSENTS FOR SURGERY SIGNED AND ON FRONT OF CHART. PATIENT AND HER SON UPDATED ON PLAN OF CARE. AM ASSESSMENT CHARTED. MEDS PER OCT. PATIENT PLACED BY ON TELEMETRY TO MONITOR. CALL LIGHT WITHIN REACH. CHAIR ALARM ON. WILL CONTINUE TO MONITOR.
[2017-11-26 20:13] VITALS: BP 169/72
[2017-11-26 23:10] VITALS: BP 181/77
[2017-11-27 04:00] VITALS: BP 158/63
[2017-11-27 07:14] LABS: HEMATOCRIT 28.7 % (37.0-47.0); HEMOGLOBIN 9.4 gm/dL (12.0-15.0); MCHC 32.7 g/dL (28.0-37.0); MCV 79.4 fL (80.0-100.0); NUCLEATED RBCS 0 /100WBC; RBC 3.61 mil/uL (4.20-5.00); RDW-CV 16.1 % (10.5-14.5); WBC 9.5 thou/uL (4.0-11.0)
[2017-11-27 07:27] LABS: ALBUMIN 2.4 g/dL (3.4-5.0); CALCIUM 8.3 mg/dL (8.5-10.1); CREATININE 0.7 mg/dL (0.6-1.3); TOTAL BILIRUBIN 0.4 mg/dL (<0.1-1.0); TOTAL PROTEIN 5.3 g/dL (6.4-8.2)
[2017-11-27 07:34] LABS: MPV 8.5 fl. (7.2-11.1); PLATELET COUNT* 200 thou/uL (150-400)
[2017-11-27 07:36] LABS: ABSOLUTE MONOCYTES 0.6 thou/uL (0.0-1.2)
[2017-11-27 07:37] LABS: ABSOLUTE LYMPHOCYTES 1.4 thou/uL (0.8-5.3); ABSOLUTE NEUTROPHILS 7.5 thou/uL (1.6-8.1); ANISOCYTOSIS Occasional; HYPOCHROMASIA 1+; OVALOCYTES Occasional; PLATELET ESTIMATE ADEQUATE
[2017-11-27 08:00] VITALS: BP 163/46
--- NOTE | 2017-11-27 08:24 | NUR ---
PT IS ABLE TO COMMUNICATE HER NEEDS TO STAFF EFFECTIVELY. CURRENT PAIN MEDICATION REGIMEN HAS BEEN ADEQUATE FOR CONTROLLING HER PAIN UP TO THIS TIME. LAPROSCOPIC INCISION SITES ARE INTACT. SHE WAS UP TO THE COMODE AND VOIDED A COUPLE OF TIMES DURING THE NIGHT.
[2017-11-27 11:31] VITALS: BP 134/58
--- NOTE | 2017-11-27 14:08 | NUR ---
ASSUMED CARE OF PATIENT THIS AM AT 0730. PATIENT IS ALERT AND ORIENTED TO PLACE AND PERSON WITH PERIODS OF CONFUSION. SHE INITIALLY SAID THAT HER PAIN WAS ONLY AT 2 THIS AM WITH ASSESSMENT. PATIENT C/O PAIN SHORTLY AFTER ASSESSNENT AFTER GETTING UP TO THE CHAIR AT 10 IN HER RIGHT UPPER SHOULDER. PATIENT ALSO C/O SOA AT THIS TIME. PATIENT MEDICATED IV X 1 FOR C/O SEVERE PAIN. SHE WAS LATER MEDICATED PO X 1 FOR DECREASED BUT CONTINUED PAIN. PATIENT STARTED ON A HEART HEALTY DIET. IV FLUIDS CONTINUED. PATIENT IS TAKING HER DIET WELL. NO FALLS OR INJURY.
[2017-11-27 16:52] VITALS: BP 179/71
[2017-11-27 20:05] VITALS: BP 145/61
[2017-11-28] VITALS: BP 167/68
[2017-11-28 04:00] VITALS: BP 159/67
[2017-11-28 05:22] LABS: CALCIUM 8.7 mg/dL (8.5-10.1); CREATININE 0.7 mg/dL (0.6-1.3); MAGNESIUM 1.9 mg/dL (1.8-2.4); POTASSIUM 4.5 mmol/L (3.5-5.1)
[2017-11-28 06:07] LABS: ABSOLUTE BASOPHILS 0.1 thou/uL (0.0-0.2); ABSOLUTE EOSINOPHILS 0.2 thou/uL (0.0-0.7); ABSOLUTE LYMPHOCYTES 1.4 thou/uL (0.8-5.3); ABSOLUTE MONOCYTES 0.9 thou/uL (0.0-1.2); ABSOLUTE NEUTROPHILS 5.8 thou/uL (1.6-8.1); BASOPHILS 0.9 %; EOSINOPHILS 2.7 %; HEMATOCRIT 33.5 % (37.0-47.0); HEMOGLOBIN 10.5 gm/dL (12.0-15.0); LYMPHOCYTES 16.4 %; MCH 25.7 pg (26.0-34.0); MCHC 31.4 g/dL (28.0-37.0); MCV 82.1 fL (80.0-100.0); MONOCYTES 11.1 %; MPV 8.4 fl. (7.2-11.1); NUCLEATED RBCS 0 /100WBC; PLATELET COUNT* 183 thou/uL (150-400); POLYS 68.9 %; RBC 4.08 mil/uL (4.20-5.00); RDW-CV 16.5 % (10.5-14.5); WBC 8.4 thou/uL (4.0-11.0)
--- NOTE | 2017-11-28 07:59 | NUR ---
PT IS ABLE TO COMMUNICATE HER NEEDS TO STAFF EFFECTIVELY. CURRENT PAIN MEDICATION REGIMEN HAS BEEN ADEQUATE FOR CONTROLLING HER PAIN UP TO THIS TIME. NO IV ACCESS APPROVED BY THE MD EARLIER THIS AM; POSSIBLE DISCHARGE TODAY.
--- NOTE | 2017-11-28 11:34 | NUR ---
ASSUMED CARE OF PATIENT THIS AM AT 0730. PATIENT IS ALERT AND ORIENTED X 2 TO 3. SHE STATED THAT HER PAIN WAS CONTROLLED AT THE TIME OF ASSESSMENT. PATIENT ASSISTED UP TO THE CHAIR THIS AM AND SHE REMAINS THERE AT THIS TIME PER HER REQUEST. PATIENT IS TAKING HER MEALS WELL. TELE SHOWS NSR. SURGICAL SITES INTACT. NO DRAINAGE NOTED. WILL CONTINUE TO MONITOR PATIENT COMFORT. PATIENT HAS CALL LIGHT IN REACH AND CHAIR ALARM IS ON.
[2017-11-28 12:25] VITALS: BP 173/78
[2017-11-28] MEDS ORDERED: CARVEDILOL3.125 MG PO (16:53)
[2017-11-28 17:03] VITALS: BP 173/78
[2017-11-28 17:51] VITALS: BP 173/78
--- NOTE | 2017-11-30 14:59 | S ---
[place] [address] SURGICAL PATH RPT PROCEDURE Name: DENA LIN Room: [address] IN M.R.#: [id number] Admission: 11/23/17 Date of : 31 Discharge: 11/28/17 Report #: [id number] Path Case #: [id number] PATHOLOGY REPORT COLLECTION DATE: 11/26/2017 RECEIVED DATE: 11/29/2017 SUBMITTING PHYS: Dr. Milan Hayes OTHER PHYS: Dr. Asif Jack SPECIMEN(S) RECEIVED: A.Gallbladder * * * * * * * * * * * * FINAL DIAGNOSIS: Gallbladder: - Acute ulcerative cholecystitis and cholelithiasis. (GRACY:dillon; 11/30/2017) PATHOLOGIST: Jose Nicholas M.D. REPORT ELECTRONICALLY SIGNED BY: Jose Nicholas M.D. DATE/TIME: 11/30/2017 14:58 * * * * * * * * * * * * GROSS PATHOLOGY: Received in formalin labeled "Dena Lin gallbladder", is a 10.8 x 4.4 x 3.0 cm, intact gallbladder with hager-combs, smooth, and dusky serosal surfaces. Opening the gallbladder reveals a green and partially necrotic mucosa and an average wall thickness of 0.4 cm. Multiple black and gravel-like calculi are present measuring up to 0.5 cm and no masses are noted grossly. Sanding Machine Operator Or Tender sections from the body and fundus are submitted along with the proximal margin in cassette A1. (SDY; 11/29/2017) CLINICAL HISTORY: Abdominal pain and cholecystitis INITIAL CPT CODE(S): A; 44724 Professional services performed by [facility] at [facility], [facility] [address], [place] [address]. Technical services performed by [facility] at [address] [place] [address], [place] [address]. [place] [address] SURGICAL PATH RPT PROCEDURE Name: SMITADENA Glass Nakia Room: [address]#: [id number] Admission: 11/23/17 Date of : 31 Discharge: 11/28/17 Report #: [id number] Path Case #: [id number] [facility] [address] [address] PHONE: [phone] DIRECTOR: Kendrick Fowler M.D. * * * END OF REPORT * * *
--- NOTE | 2017-12-13 15:01 | CON ---
[address] [address] CONSULTATION Name: CURTIS LIN Room: [address] IN M.R.#: [id number] Admission: 11/23/17 Attend Phys: Asif Reyna MD Discharge: 11/28/17 Date of : 32 Report #: [id number] THIS REPORT FOR: //name// CC: Asif SALMERON DO Candice Salmeron DICTATED BY: Deb Agrawal [facility] DATE OF SERVICE: 11/24/2017 Please note at the time of this dictation, the patient was seen and physically examined by myself. REASON FOR CONSULTATION: Epigastric pain, history of recent gastric ulcer. HISTORY OF PRESENT ILLNESS: This is an 87-year-old female who was seen by our group in September of this year and underwent an EGD on October 06, which showed a moderate hiatal hernia, a gastric ulcer with a visible vessel that was clipped, some gastritis and nonbleeding duodenal diverticulum. Biopsies were significant for H. pylori. Our office had made on 3 separate occasions, attempts to reach her via phone and successfully a letter had been sent to the patient on November 05. The patient states she never got the letter and has been untreated for H. pylori since that time. The patient states she did take her Carafate and Protonix until she ran out of her medication 2 weeks ago and she never followed up with our office like she was supposed to when she got out of the hospital. The patient began having pain in her epigastric area. She noticed some dizziness. She was unable to sleep. All this started the day before her admission. She denies any nausea or vomiting. She did not have any melena or any bright red bloody stools noted. She states the pain was in her epigastric and radiated up into her chest area. The patient has never had a colonoscopy done. ALLERGIES: No known drug allergies. MEDICATIONS FROM HOME: The hydrocodone and recently finished her Protonix and Carafate. She had been on Plavix on her last admission, but it is not stated on her current list of medications. PAST MEDICAL HISTORY: Hypertension, diabetes, history of coronary artery disease. She had a stent placed back on 11/05/2014. PAST SURGICAL HISTORY: Back surgery and a stent, history of non-STEMI. FAMILY HISTORY: [place] [address] CONSULTATION Name: RILEYCURTIS Nakia Room: [address]#: [id number] Admission: 11/23/17 Attend Phys: Asif Reyna MD Discharge: 11/28/17 Date of : 31 Report #: [id number] SOCIAL HISTORY: She does live at home alone. Her son checks on her, Chan whom is her primary contact and who needs to be contacted for any reason and not the patient. REVIEW OF SYSTEMS: Twelve-point review of systems is essentially negative except what is mentioned in the HPI. PHYSICAL EXAMINATION: VITAL SIGNS: Temperature 36.7, pulse 74, respirations 16, blood pressure 167/72. HEART: Regular rate and rhythm. LUNGS: Diminished, but clear. ABDOMEN: Soft, positive bowel sounds in all 4 quadrants with tenderness noted in the epigastric to right upper quadrant. LABORATORY DATA: Hemoglobin is 10.3, hematocrit 30.9, white count is 13.3, platelets 280. Sodium 139, potassium 3.5, chloride 106, CO2 of 25, BUN is 10, creatinine 0.8, GFR is 68, glucose is 93. CT of the abdomen and pelvis showed gallstones with a distended gallbladder with wall thickening, compression fracture in her back and a large duodenal diverticulum that was noted on her previous EGD. CCK PIPIDA done this morning shows nonopacification of the gallbladder consistent with acute cholecystitis. IMPRESSION: 1. Right upper quadrant pain with imaging consistent of acute cholecystitis. 2. History of gastric ulcer noted on October 06 positive for Helicobacter pylori and the patient has not been treated for this. 3. Leukocytosis. 4. Anemia with recent blood transfusion on last admission. PLAN: 1. We will start her H. pylori treatment clarithromycin, amoxicillin and Protonix while she is in the hospital and she will need to go home on with this. 2. We will await surgical intervention. 3. The patient will need a repeat EGD in 2 months from this date. Thank you for allowing us to participate in this patient's care. Please do not hesitate to call with any questions in regard to this consult. ADDENDUM I have personally seen and examined the patient and reviewed labs and imaging studies. The patient with history of H. pylori and peptic ulcer disease, who underwent endoscopic evaluation and treatment of gastroduodenal ulcers. She presents with severe abdominal pain with radiation to the chest. Liver enzymes are normal, but abdominal ultrasound and HIDA scan suggests acute [place] [address] CONSULTATION Name: CURTIS LIN Room: [address]#: [id number] Admission: 11/23/17 Attend Phys: Asif Reyna MD Discharge: 11/28/17 Date of : 31 Report #: [id number] The patient is scheduled for laparoscopic cholecystectomy on Wednesday. We will go ahead and treat H. pylori. The patient will need to have upper endoscopy in 2-4 weeks. <ELECTRONICALLY SIGNED> By: An Aguilar MD 12/13/17 1501 1134 1523An Aguilar MD /nt
--- NOTE | 2017-12-13 15:01 | CON ---
[address] [address] CONSULTATION Name: CURTIS LIN Room: [address] IN M.R.#: [id number] Admission: 11/23/17 Attend Phys: Asif Reyna MD Discharge: 11/28/17 Date of : 31 Report #: [id number] THIS REPORT FOR: //name// CC: Asif Reyna [facility] DATE OF SERVICE: 11/24/2017 ADDENDUM I have personally seen and examined the patient and reviewed labs and imaging studies. The patient with history of H. pylori and peptic ulcer disease, who underwent endoscopic evaluation and treatment of gastroduodenal ulcers. She presents with severe abdominal pain with radiation to the chest. Liver enzymes are normal, but abdominal ultrasound and HIDA scan suggests acute cholecystitis. The patient is scheduled for laparoscopic cholecystectomy on Wednesday. We will go ahead and treat H. pylori. The patient will need to have upper endoscopy in 2-4 weeks. <ELECTRONICALLY SIGNED> By: An Aguilar MD 12/13/17 1501 1455 1803An Aguilar MD /nt
--- NOTE | 2017-12-29 09:47 | OP ---
[address] [address] OPERATIVE REPORT Name: SMITAMaria LuisaCUTRIS Nakia Room: [address] IN M.R.#: [id number] Admission: 11/23/17 Attend Phys: Asif Reyna MD Discharge: 11/28/17 Date of : 31 Report #: [id number] THIS REPORT FOR: //name// CC: [facility]if [facility] DICTATED BY: Tristan Marcum DO DATE OF SERVICE: 11/26/2017 PREOPERATIVE DIAGNOSIS: Acute cholecystitis. POSTOPERATIVE DIAGNOSIS: Acute cholecystitis. SURGEON: Milan Hayes DO CO-SURGEON: Tristan Marcum DO MANUFACTURING INSPECTOR: Beatriz Becerra DO OPERATION PERFORMED: Laparoscopic cholecystectomy with aspiration of the gallbladder. ANESTHESIA TYPE: General endotracheal anesthesia. ESTIMATED BLOOD LOSS: 50 mL. SPECIMEN REMOVED: Gallbladder. COMPLICATIONS: None. DISPOSITION: PACU to Med/Surg. HISTORY OF PRESENT ILLNESS: The patient is a pleasant 87-year-old female who presented with acute abdominal pain, midepigastric and right upper quadrant. This pain began on Wednesday and progressively became worse since that time. She had history of recent bleeding ulcer back in September and had an EGD with clipping of the ulcer. She had no further complications since that time. She had some associated nausea and vomiting with her abdominal pain and some fatty food dyscrasias, but no other complaints. Today it was discussed with her that a laparoscopic cholecystectomy would be the best treatment course. Risks and complications discussed to include bleeding, infection, injury to surrounding structures, risk of cardiopulmonary compromise and failure, and risk of anesthesia. She acknowledged her understanding and agreed to proceed with surgery. [address] [address] OPERATIVE REPORT Name: CURTIS LIN Room: [address] IN M.R.#: [id number] Admission: 11/23/17 Attend Phys: Asif Reyna MD Discharge: 11/28/17 Date of : 31 Report #: [id number] DESCRIPTION OF PROCEDURE: The patient was brought back to the operating room after consent was obtained. She was placed in the supine position. SCDs were placed bilaterally. Two grams of Ancef were given and general endotracheal anesthesia was then performed without any complication. The patient was then prepped and draped in the usual sterile fashion. Timeout was performed to ensure patient and procedure. A supraumbilical incision was then made in the midline with an 11 blade scalpel. Cautery was then used to ensure hemostasis and the dissection was carried down to the fascia. The fascia was scored, elevated between 2 Kochers and a hemostat was used to push through the peritoneum. The 0 Vicryl stitches were then placed on either side of the fascia and an 8 mm Zuri trocar was then placed through the midline incision. Insufflation was initiated successfully. The abdomen was evaluated and the gallbladder could be seen in the right upper quadrant. It was very distended and edematous indicating acute cholecystitis. A second incision was made just below the xiphoid and a 5 mm trocar was placed under direct visualization. The blunt dissector was then used to further evaluate the gallbladder. The omentum was swept medially and the gallbladder was visualized. Two more trocars were then placed on the right side of the abdomen under direct visualization. Aspiration needle was placed into the gallbladder and then 90 mL of bile was aspirated from the gallbladder. The gallbladder was then grasped and elevated above the liver. Cautery was used to dissect down through the overlying fat and edematous tissue. A [place] dissector was used to dissect around the cystic duct. The artery could not be adequately viewed at that time. So, the cystic duct was clipped 3 times and cut. Dissection was then continued in an attempt to locate the artery. After the artery was located, dissection was used and critical view was obtained. The artery was then clipped 2 times and cut. The gallbladder was elevated and dissected off the liver. Hemostasis was ensured. The right upper quadrant was irrigated copiously and suctioned. Again, hemostasis was assured. All ports were removed under direct visualization to ensure hemostasis. Before the trocars were removed, the gallbladder was placed in EndoCatch bag and removed. The midline incision was closed with 2-0 Vicryl stitches in a [id number] fashion. All skin incisions were closed with 4-0 Monocryl. Before this, insufflation was released from the abdomen. Anesthesia was then reversed and the patient awoke, the patient tolerated the procedure well. All counts were correct. All needle counts, sponge counts, instrument counts were correct. The patient was then taken to the PACU in stable condition. <ELECTRONICALLY SIGNED> By: Milan Hayes DO 12/29/17 0947 1814 1856Awilliam Hayes DO /nt
== END 2017-11-28 18:20 | disposition home health service (06) | DRG 417 ==
LOC: M.ERS 05:50 → M.2W 08:48 → M.TBA-ER 08:48 → M.2W 10:18
PROVIDERS: Emergency Medicine; Family Medicine; Surgery; ADMIT Internal Medicine
PROC: 0FT44ZZ Resection of Gallbladder, Percutaneous Endoscopic Approach (ICD-10-PCS; principal; 2017-11-23)
PROC: 0F944ZX Drainage of Gallbladder, Percutaneous Endoscopic Approach, Diagnostic (ICD-10-PCS; principal; 2017-11-23)
DX: K81.0 Acute cholecystitis (principal); I50.33 Acute on chronic diastolic (congestive) heart failure; E43 Unspecified severe protein-calorie malnutrition; R65.10 Systemic inflammatory response syndrome (SIRS) of non-infectious origin without acute organ dysfunction; I11.0 Hypertensive heart disease with heart failure; E11.9 Type 2 diabetes mellitus without complications; G25.81 Restless legs syndrome; I25.10 Atherosclerotic heart disease of native coronary artery without angina pectoris; I35.0 Nonrheumatic aortic (valve) stenosis; M19.90 Unspecified osteoarthritis, unspecified site; G89.29 Other chronic pain; I16.0 Hypertensive urgency; D64.9 Anemia, unspecified; Z79.899 Other long term (current) drug therapy; I25.2 Old myocardial infarction; Z95.5 Presence of coronary angioplasty implant and graft; Z90.710 Acquired absence of both cervix and uterus; Z79.02 Long term (current) use of antithrombotics/antiplatelets; Z87.11 Personal history of peptic ulcer disease; Z68.30 Body mass index [BMI] 30.0-30.9, adult

== ENCOUNTER 2017-12-10 07:12 | Inpatient (IN) | payer MEDICARE, OTHER ==
[~2017-12-10] VITALS: Ht 152.4 cm; Wt 59.9 kg
[2017-12-10] VITALS (7 sets, daily range): BP systolic 126–213; BP diastolic 65–135
[~2017-12-10 07:12] MED LIST changes: +CARVEDILOL3.125 MG PO
[2017-12-10 08:15] LABS: HEMATOCRIT 33.3 % (37.0-47.0); HEMOGLOBIN 10.7 gm/dL (12.0-15.0); MCH 24.6 pg (26.0-34.0); MCV 76.8 fL (80.0-100.0); MPV 7.4 fl. (7.2-11.1); NUCLEATED RBCS 0 /100WBC; PLATELET COUNT* 619 thou/uL (150-400); RBC 4.34 mil/uL (4.20-5.00); RDW-CV 16.1 % (10.5-14.5); WBC 18.7 thou/uL (4.0-11.0)
[2017-12-10 08:25] LABS: INR 1.2; PROTIME 11.7 Seconds (9.20-11.50)
[2017-12-10 08:31] LABS: ANION GAP 11 mmol/L (7-16); BUN 13 mg/dL (7-18); CALCIUM 8.5 mg/dL (8.5-10.1); CHLORIDE 101 mmol/L (98-107); CO2 26 mmol/L (21-32); CREATININE 0.8 mg/dL (0.6-1.3); GLUCOSE 311 mg/dL (70-99); POTASSIUM 3.8 mmol/L (3.5-5.1); SODIUM 138 mmol/L (136-145)
[2017-12-10 08:42] LABS: ALBUMIN 3.1 g/dL (3.4-5.0); ALKALINE PHOSPHATASE 92 U/L (46-116); LIPASE 34 U/L (73-393); NT-PRO BRAIN NAT PEPTIDE 17884 pg/mL (<300); SGOT 15 U/L (15-37); SGPT 15 U/L (30-65); TOTAL BILIRUBIN 0.4 mg/dL (<0.1-1.0); TOTAL PROTEIN 7.1 g/dL (6.4-8.2); TROPONIN-I LEVEL <0.06 ng/mL (<0.06)
[2017-12-10 08:44] LABS: ABSOLUTE EOSINOPHILS 0.4 thou/uL (0.0-0.7); ABSOLUTE LYMPHOCYTES 1.9 thou/uL (0.8-5.3); ABSOLUTE MONOCYTES 0.6 thou/uL (0.0-1.2); ABSOLUTE NEUTROPHILS 15.9 thou/uL (1.6-8.1); ATYPICAL LYMPHS 1 %; PLATELET ESTIMATE ADEQUATE
[2017-12-10 09:16] LABS: URINE BILIRUBIN NEGATIVE (Negative); URINE BLOOD NEGATIVE (Negative); URINE CLARITY CLEAR; URINE COLOR YELLOW; URINE GLUCOSE-RANDOM TRACE (Negative); URINE KETONES NEGATIVE (Negative); URINE LEUKOCYTES-REFLEX NEGATIVE (Negative); URINE NITRITE-REFLEX NEGATIVE (Negative); URINE PROTEIN 1+ (Negative); URINE SPECIFIC GRAVITY >= 1.030 (1.005-1.030); URINE UROBILINOGEN 0.2 E.U./dl (0.2-1.0)
[2017-12-10 09:43] LABS: BE -0.5 mmol/L (-2 to +3); HCO3 24.4 mmol/L (22.0-26.0); PCO2 40.8 mmHg (35.0-45.0); PO2 70.8 mmHg (75.0-100.0); pH 7.394 (7.340-7.450)
--- NOTE | 2017-12-10 11:30 | NUR ---
RECIEVED REPORT FROM JOHANNY IN ED AND ASSUMED CARE OF PT @ 1000. PT IS A/O X2 WITH CONFUSION,VSS,TRACING AFIB AND SR WITH PAC/PVC ON MONITOR.CARDIOLOGY NURSE IS AWARE OF PT CONVERTING BACK AND FORTH.LUNG SOUNDS ARE COARSE WITH AUDIBLE WHEEZES.PT ON 4L O2 NC WITH O2 SAT 95%.PT HAD VERY SMALL BOWEL MOVEMENT IN ED.IV LEFT AC PATENT AND SALINE LOCKED. IV RIGHT FOREARM PATENT AND SALINE LOCKED. PT IS CALM AND COOPERATIVE BUT VERY SLEEPY FROM ATIVAN GIVEN IN ED.PT DENIES PAIN AT TIME OF ASSESSMENT JUST TENDERNESS IN ABDOMEN UPON PALPATION.NURSE CURRENTLY HAS PT ON BEDREST WITH Q2T UNTIL PT WAKES UP A LITTLE FROM MEDICATION.CALL LIGHT AND FALL PRECAUTIONS IN PLACE. SON AT BEDSIDE.WILL CONTINUE TO MONITOR.
[2017-12-10] MEDS ORDERED: BIAXIN 250MG T250 MG PO (12:46)
[2017-12-10] MEDS ORDERED: AMOXICILLIN 50500 MG PO (13:16)
[2017-12-10] MEDS ORDERED: NORCO 10-325 T1 EACH PO (13:16)
[2017-12-10] MEDS ORDERED: CARAFATE1 GM/10 ML PO (13:16)
[2017-12-10] MEDS ORDERED: COZAAR 25 MG TA25 M1 PO (13:16)
--- NOTE | 2017-12-10 17:11 | 2DMMODE ---
[place] [address] 2 D/M-MODE ECHOCARDIOGRAM Name: CURTIS LIN Room: [address] IN [facility]#: [id number] Admission: 12/10/17 Attend Phys: Isma Ruiz Discharge: Date of : 31 Date of Service: 12/10/17 1711 Report #: [id number] THIS REPORT FOR: //name// APPROVED REPORT Study performed: 12/10/2017 15:17:53 EXAM: Comprehensive 2D, Doppler, and color-flow Echocardiogram Patient Location: In-Patient Room #: [facility] Status: routine BSA: 1.68 HR: 69 bpm BP: 159/83 mmHg Rhythm: NSR Other Information Study Quality: Good Indications Congestive Heart Failure 2D Dimensions LVEF(%): 38.71 (>50%) IVSd: 12.06 (7-11mm) LVOT Diam: 19.31 (18-24mm) LVDd: 49.12 mm PWd: 11.22 (7-11mm) LVDs: 39.89 (25-40mm) Aortic Root: 29.27 mm Mercado's LVEF: 38.71 % Volumes Left Atrial Volume (Systole) LA ESV Index: 36.30 mL/m2 Aortic Valve AoV Peak Omar.: 2.86 m/s AO Peak Gr.: 32.65 mmHg LVOT Max P.87 mmHg AO Mean Gr.: 20.44 mmHg LVOT Mean P.24 mmHg LVOT Max V: 0.85 m/s AO V2 VTI: 59.56 cm LVOT Mean V: 0.50 m/s CAROLEE (VTI): 0.82 cm2 LVOT V1 VTI: 16.64 cm Mitral Valve E/A Ratio: 0.51 [place] [address] 2 D/M-MODE ECHOCARDIOGRAM Name: CURTIS LIN Room: [address]#: [id number] Admission: 12/10/17 Attend Phys: Isma Ruiz Discharge: Date of : 31 Date of Service: 12/10/17 1711 Report #: [id number] MV Decel. Time: 180.86 ms MV E Max Omar.: 0.81 m/s MV PHT: 52.45 ms MVA (PHT): 4.19 cm2 TDI E/Lateral E': 13.50 E/Medial E': 20.25 Medial E' Omar.: 0.04 m/s Lateral E' Omar.: 0.06 m/s Pulmonary Valve PV Peak Omar.: 0.85 m/s PV Peak Gr.: 2.87 mmHg Tricuspid Valve TR Peak Gr.: 42.74 mmHg RVSP: 47.00 mmHg Left Ventricle The left ventricle is normal size. Regional wall motion abnormalities are noted with distal septal and anteroapical hypo-akinesis There is normal left ventricular wall thickness. Left ventricular systolic function is moderately decreased. LVEF is 35%. Grade I - abnormal relaxation pattern. Right Ventricle The right ventricle is normal size. The right ventricular systolic function is normal. Atria Left atrium is mildly dilated. The right atrium size is normal. Aortic Valve Moderate aortic valve sclerosis. Mild aortic regurgitation. Mild to moderate aortic stenosis. Mitral Valve There is mitral annular calcification. Mild mitral regurgitation. No evidence of mitral valve stenosis. Tricuspid Valve The tricuspid valve is normal in structure. Mild tricuspid regurgitation. The RVSP is 45-50 mmHg. Pulmonic Valve The pulmonary valve is normal in structure. There is no [place]mon[place] [address] 2 D/M-MODE ECHOCARDIOGRAM Name: CURTIS LIN Room: [address]#: [id number] Admission: 12/10/17 Attend Phys: Isma Ruiz Discharge: Date of : 31 Date of Service: 12/10/17 1711 Report #: [id number] Great Vessels The aortic root is normal in size. IVC is normal in size and collapses with >50% inspiration Pericardium There is no pericardial effusion. Left pleural effusion. <Conclusion> The left ventricle is normal size. There is normal left ventricular wall thickness. Left ventricular systolic function is moderately decreased. LVEF is 35%. Grade I - abnormal relaxation pattern. The right ventricle is normal size. Left atrium is mildly dilated. Moderate aortic valve sclerosis. Mild aortic regurgitation. Mild to moderate aortic stenosis. There is mitral annular calcification. Mild mitral regurgitation. The tricuspid valve is normal in structure. Mild tricuspid regurgitation. The RVSP is 45-50 mmHg. IVC is normal in size and collapses with >50% inspiration There is no pericardial effusion. Regional wall motion abnormalities are noted with distal septal and anteroapical hypo-akinesis <ELECTRONICALLY SIGNED> By: William Andrade MD, FACC 12/10/171710 10 10 William Andrade MD, FACC /INF
--- NOTE | 2017-12-10 17:28 | NUR ---
VSS,CARDIAC MONITORING IN PLACE SHOWING SR PAC/PVC.PT REMAINS ON 4L O2 NC.PT DENIES PAIN THROUGHOUT SHIFT.REMAINS SLEEPY FROM ATIVAN GIVEN IN ED. AMBULATED WITH PATROL COMMANDER TO BATHROOM ONCE.PT WILL GET UP WITH ONE TO BSC SO SHE CAN KEEP OXYGEN ON DURING EXERTION.SOTO REMAINS SECURE IN PLACE AND PATENT.HOURLY ROUNDING COMPLETED FOR PT SAFETY.CALL LIGHT AND FALL PRECAUTIONS IN PLACE.WILL CONTINUE TO MONITOR FOR SURATION OF SHIFT.
[2017-12-11 03:49] VITALS: BP 106/67
--- NOTE | 2017-12-11 05:27 | NUR ---
PT IS ABLE TO COMMUNICATE HER NEEDS TO STAFF WITH MINOR DIFFICULTY; SHE IS [id number] AND CONFUSED AT TIMES. CURRENT PAIN MEDICATION REGIMEN HAS BEEN ADEQUATE FOR CONTROLLING HER PAIN UP TO THIS TIME. SOTO IS PATENT. PT HAS REFUSED TURNS INTERMITTENTLY.
[2017-12-11 12:15] VITALS: BP 123/67
--- NOTE | 2017-12-11 13:30 | NUR ---
SW met with pt to complete initial assessment, introduce self and SW role. Pt alert and oriented. Pt lives at home with her son who works. Pt explained that her other son takes care of her and provides for her needs and transportation. Pt says she is fairly independent with ADLs and mobility; pt says she does not have any DME. [facility]. SW to continue to follow.
[2017-12-11 15:22] VITALS: BP 134/63
--- NOTE | 2017-12-11 17:21 | EKG ---
[place] [address] ELECTROCARDIOGRAM REPORT Name: CURTIS LIN Room: [address] ADM IN .R.#: [id number] Admission: 12/10/17 Attend Phys: Isma Young, Discharge: Date of : 31 Report #: [id number] THIS REPORT FOR: //name// [facility] ED Test Date: 2017-12-10 Test Time: 07:25:53 Pat Name: CURTIS LIN Department: Room: [facility] Gender: F Design Manager: JENNIFER : 1930 Requested By: Hugo Lugo Order Number: [id number] MD: David Ham Measurements Intervals [place] Rate: 135 P: 33 IA: 153 QRS: -43 QRSD: 97 T: 127 QT: 325 QTc: 488 Interpretive Statements Sinus tachycardia Short burst of supraventricular tachycardia Left anterior fascicular block Possible anterior infarct, old Repolarization abnormality, prob rate related Compared to ECG 11/23/2017 16:09:22 Myocardial infarct finding now present Early repolarization now present Sinus rhythm no longer present Left ventricular hypertrophy no longer present Electronically Signed On 12-11-2017 17:20:56 CDT by David Ham [email or web address] <ELECTRONICALLY SIGNED> By: David Ham MD, FACC 12/11/17 1720 4 4 David Ham MD, FACC /EPI
[2017-12-11 20:22] VITALS: BP 155/71
--- NOTE | 2017-12-11 20:50 | NUR ---
I ASSUMED CARE OF THE PATIENT AT 0700. SHE IS ALERT TO PLACE AND SELF, BUT SHE IS CONFUSED AND FORGETFUL. BED IS IN THE LOW LOCKED POSITION AND CALL LIGHT IS IN REACH. HOURLY ROUNDING IS COMPLETED AND PATIENT NEEDS ARE MET. PAIN IS MANAGED WITH PRN MEDS. WILL CONTINUE TO MONITOR. ELIA TOOK TURNS AT THE BEDSIDE MOST OF THE DAY.
[2017-12-12] VITALS: BP 139/70
[2017-12-12 04:00] VITALS: BP 139/63
[2017-12-12 05:05] LABS: HEMATOCRIT 29.8 % (37.0-47.0); HEMOGLOBIN 9.8 gm/dL (12.0-15.0); MCHC 32.7 g/dL (28.0-37.0); MCV 76.3 fL (80.0-100.0); RBC 3.91 mil/uL (4.20-5.00); RDW-CV 16.3 % (10.5-14.5); WBC 7.5 thou/uL (4.0-11.0)
[2017-12-12 05:46] LABS: CALCIUM 8.1 mg/dL (8.5-10.1); CREATININE 0.9 mg/dL (0.6-1.3); MAGNESIUM 1.5 mg/dL (1.8-2.4); POTASSIUM 3.5 mmol/L (3.5-5.1)
[2017-12-12 08:00] VITALS: BP 122/69
--- NOTE | 2017-12-12 08:20 | NUR ---
PT IS ABLE TO COMMUNICATE HER NEEDS TO STAFF WITH ONLY MINOR DIFFICULTY; SHE IS [id number] AND FORGETFUL. CURRENT PAIN MEDICATION REGIMEN HAS BEEN ADEQUATE FOR CONTROLLING HER PAIN UP TO THIS TIME. PT COMPLAINED OF BLADDER DISCOMFORT OVERNIGHT, SOTO WAS FLUSHED AND FOUND TO BE PATENT; REPOSITIONING SEEMED TO HELP IMPROVE HER COMFORT.
--- NOTE | 2017-12-12 09:56 | CON ---
[address] [address] CONSULTATION Name: SMITAMaria LuisaCURTIS Room: [address] IN ..#: [id number] Admission: 12/10/17 Attend Phys: Isma Young, Discharge: Date of : 31 Report #: [id number] THIS REPORT FOR: //name// CC: Candice Jack Isma Young DATE OF SERVICE: 12/10/2017 LOCATION: [facility] PATIENT OF: Isma Young MD HISTORY OF PRESENT ILLNESS: The patient is a pleasant 87-year-old female who presented with abdominal fullness and shortness of breath. Chest radiograph suggested congestive heart failure and she had a markedly increased BNP with a normal troponin. She is feeling better after diuresis and notes marked improvement in her dyspnea. The patient denies any chest, neck, jaw or arm discomfort. She does have a history of coronary artery disease with prior right coronary stenting and underlying hypertension and diabetes. HOME MEDICATIONS: Have included carvedilol and pantoprazole. Since admission, there has been parenteral diuresis with significant improvement in her breathing in that context. PAST MEDICAL HISTORY: Remarkable for hysterectomy, back surgery and PCI of the right coronary artery. FAMILY HISTORY: Negative for premature coronary artery disease. SOCIAL HISTORY: The patient is . She does not smoke. REVIEW OF SYSTEMS: Remarkable for the following positives: CARDIOVASCULAR: She notes occasional chest discomfort and dyspnea on admission. ENDOCRINE: She has type 2 diabetes. EYES: She wears reading glasses. PHYSICAL EXAMINATION: GENERAL: Reveals a frail-appearing elderly female in no acute distress. VITAL SIGNS: Blood pressure 130/70, pulse rate 79 and respirations are 20 per [address] [place] [address] CONSULTATION Name: CURTIS LIN Room: [address] IN [facility].#: [id number] Admission: 12/10/17 Attend Phys: Isma Young, Discharge: Date of : 31 Report #: [id number] NECK: Jugular venous pressure is normal. CHEST: With rare rhonchi. CARDIAC: Reveals normal first and second heart sounds with a soft systolic murmur and a question of summation gallop. ABDOMEN: Modestly distended. EXTREMITIES: Cool, but satisfactorily perfused with minimal lower extremity edema. LABORATORY DATA: Electrocardiogram demonstrates sinus rhythm, anteroseptal scar of indeterminate age, left axis deviation and nonspecific ST-T alterations. Rhythm strips now demonstrates sinus rhythm and a normalized rate. Troponin I is within normal limits. IMPRESSION: 1. Congestive heart failure. 2. Coronary artery disease, status post prior stenting. 3. EKG suggests anteroseptal infarction of indeterminate age. 4. Hypertension. 5. Type 2 diabetes. RECOMMENDATIONS: 1. Review echocardiogram: This has been done and it reveals moderate impairment in global LV function, estimated ejection fraction being 35% with distal septal and anteroapical akinesis. This is new from prior study and suggests interval anteroseptal and apical infarction. 2. Continued diuresis. 3. Beta blockade. 4. Antiplatelet therapy with aspirin. 5. Reviewing the overall clinical circumstance and the frailty of this 87-year-old female, I would not recommend proceeding with cardiac catheterization. <ELECTRONICALLY SIGNED> By: William Andrade MD, FACC 12/12/17 0956 [id number] Andrade MD, FACC /nt
[2017-12-12 12:21] VITALS: BP 152/88
[2017-12-12 16:59] VITALS: BP 143/71
[2017-12-12 17:07] LABS: CALCIUM 8.6 mg/dL (8.5-10.1); MAGNESIUM 1.6 mg/dL (1.8-2.4); POTASSIUM 3.3 mmol/L (3.5-5.1)
--- NOTE | 2017-12-12 19:04 | NUR ---
I ASSUMED CARE OF THE PATIENT AT 0700. SHE IS ALERT TO SELF AND TIME, SOMETIMES PLACE, AND IS UP WITH ASSISTANCE X1. SOTO WAS REMOVED TODAY. HOURLY ROUNDING WAS COMPLETED AND PATIENT NEEDS WERE MET. PAIN WAS MANAGED WITH PRN MEDS. SHE HAD A SHORT RUN OF SVT THAT WAS DOCUMENTED AND DR CASAS WAS NOTIFIED. WE ARE PUTTING CREAM ON HER LOWER ABDOMEN. BED IS IN THE LOW LOCKED POSITION AND CALL LIGHT WAS IN REACH. FAMILY AT THE BEDSIDE MOST OF THE DAY.
[2017-12-12 20:00] VITALS: BP 126/71
[2017-12-13] VITALS: BP 127/70
--- NOTE | 2017-12-13 02:16 | NUR ---
AT 0105, NOTIFIED PT OF NOT ABLE TO PLACE PERIPHERAL IV IN PATIENT. 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 SPOKE TO DR. HARTMAN, NO NEW ORDERS RECEIVED. STATED IT'S OK TO WAIT UNTIL AM.
--- NOTE | 2017-12-13 03:49 | NUR ---
ASSUMED CARE OF PT AT 1930, NURSING ASSESSMENT COMPLETED AT START OF SHIFT, PT LOST IV ACCESS THIS SHIFT, UNABLE TO PLACE NEW PERIPHERAL IV, DR. HARTMAN AWARE, PT TRACING SINUS RHYTHM ON WEB CONTENT & SOCIAL MEDIA MANAGER. HOURLY ROUNDING COMPLETED, FALL PRECAUTIONS IN PLACE, CALL LIGHT WITHIN REACH.
[2017-12-13 04:00] VITALS: BP 133/60
[2017-12-13 07:13] LABS: MAGNESIUM 1.7 mg/dL (1.8-2.4); POTASSIUM 3.8 mmol/L (3.5-5.1)
--- NOTE | 2017-12-13 07:30 | NUR ---
ASSUMED CARE OF PT ASSESSED AND DOCUMENTED. PT IS ON CARDIAC MONITER TRACING SR PVC HR 72. PT IS A&O WITH NO C/O PAIN. PT IS ON ROOM AIR WITH CLEAR LUNGS. PT IS AFEBRILE. PT REFUSES IV PLACEMENT. NOTIFIED. PT IS ON FALL PRECAUTIONS PER FACILITY PROTOCOL. BED IS IN LOW POSITION CALL LIGHT IS IN REACH. WM.
[2017-12-13 08:00] VITALS: BP 169/80
[2017-12-13] MEDS ORDERED: COREG6.25 MG PO (08:35)
[2017-12-13] MEDS ORDERED: LASIX 40 MG TAB40 M2 PO (08:35)
[2017-12-13] MEDS ORDERED: GLUCOTROL XL5 MG PO (08:35)
[2017-12-13] MEDS ORDERED: KLOR-CON 1010 MEQ PO (08:35)
--- NOTE | 2017-12-13 10:46 | NUR ---
ORDER RECEIVED FOR "OT EVALUATION AND TREATMENT". RN STATING THAT PT APPEARS TO HAVE SLIGHT BALANCE DEFICIT. ENTERED PATIENT'S ROOM, AND PT INITIALLY APPEARING AGREEABLE TO OT EVALUATION. PT PROVIDING FULL SUBJECTIVE HISTORY, THEN WHEN APPROACHED PT REGARDING ACTIVITY, PT STATES, "LADY, I'M NOT GOING TO DO ANYTHING. I HAD A BATH ALREADY AND I'M NOT GOING TO GET UP. I'VE BEEN ASKED ENOUGH QUESTIONS TODAY". OT IN ROOM LESS THAN EIGHT MINUTES, THEREFORE, DID NOT CHARGE FOR INITIATION OF EVAL. WILL RE-ATTEMPT TOMORROW (12/14).
[2017-12-13 11:36] VITALS: BP 124/75
--- NOTE | 2017-12-13 15:54 | NUR ---
PT D/C'D TO HOME. ALL CONSULTS OK WITH D/C. EDUCATION GIVEN RE FOLLOW-UPS, MEDICATIONS, AND DR ORDERS. D/C'D CARDIAC MONITER. ALL BELONGINGS PACKED UP AND LEFT WITH PT ACCOMPANIED BY STAFF AND PTS SON.
--- NOTE | 2017-12-14 08:27 | NUR ---
P.T. ORDERS RECEIVED 12/12/17. P.T. EVAL ATTEMPTED BY OTHER P.T. 12/13/17. PT REFUSED. PT DISCHARGE 12/13/17 PRIOR TO COMPLETION OF P.T. EVAL.
--- NOTE | 2017-12-15 14:27 | CON ---
[address] [place] [address] CONSULTATION Name: CURTIS LIN Room: [address] IN M.R.#: [id number] Admission: 12/10/17 Attend Phys: Isma Young, Discharge: 12/13/17 Date of : 31 Report #: [id number] THIS REPORT FOR: //name// CC: Candice Nefformick Isma Young CHIEF COMPLAINT: Podiatric consultation for toenail debridement. The patient has thick dystrophic toenails that are painful to palpation and in shoes. She denies open lesions or infection. PHYSICAL EXAMINATION: Toenails are severely dystrophic with onychodystrophy. There is no drainage, granulation or paronychia. She has jose's horn deformities to both great toenails. She has palpable pedal pulses bilaterally with immediate digital capillary refill, +1 nonpitting edema to both legs with superficial varicosities noted. No open lesions. No corns or calluses. IMPRESSION: Onychomycosis with pain. PLAN: I manually debrided her toenails x 10. The patient to follow up with me in my [place] office. <ELECTRONICALLY SIGNED> By: Radu Ventura DPM 12/15/17 1427 1033 [id number] Ventura DPM /nt
== END 2017-12-13 16:05 | disposition home health service (06) | DRG 291 ==
LOC: M.ERS 07:12 → M.2W 09:13 → M.TBA-ER 09:13 → M.2W 10:16
PROVIDERS: Emergency Medicine; Internal Medicine; ADMIT Family Medicine
PROC: B24BZZ4 Ultrasonography of Heart with Aorta, Transesophageal (ICD-10-PCS; principal; 2017-12-10)
PROC: 0HBRXZZ Excision of Toe Nail, External Approach (ICD-10-PCS; 2017-12-11)
DX: I11.0 Hypertensive heart disease with heart failure (principal); J96.01 Acute respiratory failure with hypoxia; E11.9 Type 2 diabetes mellitus without complications; I25.10 Atherosclerotic heart disease of native coronary artery without angina pectoris; G25.81 Restless legs syndrome; I50.43 Acute on chronic combined systolic (congestive) and diastolic (congestive) heart failure; E83.42 Hypomagnesemia; I25.5 Ischemic cardiomyopathy; B35.1 Tinea unguium; I08.3 Combined rheumatic disorders of mitral, aortic and tricuspid valves; I16.0 Hypertensive urgency; K21.9 Gastro-esophageal reflux disease without esophagitis; D72.829 Elevated white blood cell count, unspecified; I25.2 Old myocardial infarction; Z95.5 Presence of coronary angioplasty implant and graft; Z90.710 Acquired absence of both cervix and uterus; Z79.899 Other long term (current) drug therapy; Z82.49 Family history of ischemic heart disease and other diseases of the circulatory system

== ENCOUNTER 2019-05-10 11:33 | Inpatient (IN) | payer MEDICARE, OTHER ==
[~2019-05-10] VITALS: Ht 162.6 cm; Wt 62.4 kg
[~2019-05-10 11:33] MED LIST changes: +AMOXICILLIN 50500 MG PO; +BIAXIN 250MG T250 MG PO; +CARAFATE1 GM/10 ML PO; +COREG6.25 MG PO; +COZAAR 25 MG TA25 M1 PO; +GLUCOTROL XL5 MG PO; +KLOR-CON 1010 MEQ PO; +LASIX 40 MG TAB40 M2 PO
[2019-05-10 11:39] VITALS: BP 151/73
[2019-05-10 12:13] LABS: ABSOLUTE BASOPHILS 0.1 thou/uL (0.0-0.2); ABSOLUTE EOSINOPHILS 0.1 thou/uL (0.0-0.7); ABSOLUTE LYMPHOCYTES 0.8 thou/uL (0.8-5.3); ABSOLUTE MONOCYTES 0.5 thou/uL (0.0-1.2); ABSOLUTE NEUTROPHILS 6.4 thou/uL (1.6-8.1); HEMATOCRIT 34.7 % (37.0-47.0); HEMOGLOBIN 11.5 gm/dL (12.0-15.0); MCH 25.4 pg (26.0-34.0); MCHC 33.2 g/dL (28.0-37.0); MCV 76.5 fL (80.0-100.0); MONOCYTES 6.4 %; NUCLEATED RBCS 0 /100WBC; PLATELET COUNT* 261 thou/uL (150-400); POLYS 81.6 %; RBC 4.54 mil/uL (4.20-5.00); RDW-CV 17.1 % (10.5-14.5); WBC 7.8 thou/uL (4.0-11.0)
[2019-05-10 12:21] LABS: INR 1.1; PROTIME 11.2 Seconds (9.20-11.50)
[2019-05-10 12:22] LABS: CALCIUM 9.1 mg/dL (8.5-10.1); CREATININE 0.9 mg/dL (0.6-1.3); POTASSIUM 4.4 mmol/L (3.5-5.1)
[2019-05-10 12:32] LABS: ALBUMIN 3.6 g/dL (3.4-5.0); TOTAL BILIRUBIN 0.5 mg/dL (<0.1-1.0); TOTAL PROTEIN 7.3 g/dL (6.4-8.2); TROPONIN-I LEVEL 0.26 ng/mL (<0.06)
--- NOTE | 2019-05-10 12:52 | NUR ---
[facility] HAS BEEN CALLED AND IS ON THEIR WAY TO START AN IV IN THE PATIENT.
[2019-05-10] MEDS ORDERED: METFORMIN HCL500 MG PO (13:27)
[2019-05-10] MEDS ORDERED: IMDUR 30 MG TAB30 M1 PO (13:27)
--- NOTE | 2019-05-10 13:48 | NUR ---
PUREWICK APPLIED TO PATIENT. PT IS SITTING COMFORTABLY IN BED WITH FAMILY AT BEDSIDE. IV SALINE LOCKED.
[2019-05-10 14:13] VITALS: BP 175/104
[2019-05-10 14:23] VITALS: BP 171/89
[2019-05-10 15:01] VITALS: BP 176/95
--- NOTE | 2019-05-10 15:28 | NUR ---
PT ADMITTED TO ROOM 221 VIA CART FROM ED AT APPROXIMATELY 1430. REPORT RECEIVED FROM JOSE MILLER. PT ORIENTED TO ROOM AND CALL LIGHT. ADMISSION ASSESSMENT AND HISTORY COMPLETED. REFER TO CHARTING. PT SON AT BEDSIDE. PT A&0X4, DENIES ANY PAIN OR SHORTNESS OF BREATH AT THIS TIME. PT TRACING SR/ST ON THE INSURANCE CLAIMS SPECIALIST. ON 2L NC SAT 98%. PT UP WITH 1 ASSIST AND WALKER TO BATHROOM. PURE WICK PLACED IN ED AND IS CURRENTLY HOOKED UP TO SUCTION. CARDIOLOGY CONSULT IN PLACE. PT STATES SHE LIVES AT HOME BY HER SELF AND HAS LIFE ALERT IN PLACE. PT REPOSITIONS SELF. HOURLY ROUNDING OBSERVED. BED IN LOW POSITION. CALL LIGHT WITHIN REACH. WILL CONTINUE PLAN OF CARE.
[2019-05-10 15:45] VITALS: BP 161/90
--- NOTE | 2019-05-10 16:26 | NUR ---
REPORT GIVEN AND ASSUMED PATIENT CARE PATIENT LAYING IN BED AND WATCHING TV
--- NOTE | 2019-05-10 16:28 | 2DMMODE ---
[place] [address] 2 D/M-MODE ECHOCARDIOGRAM Name: CURTIS LIN Room: [address] IN [facility]#: [id number] Admission: 05/10/19 Attend Phys: Nighat Veloz, Discharge: Date of : 31 Date of Service: 05/10/19 1628 Report #: [id number] THIS REPORT FOR: //name// APPROVED REPORT Study performed: 05/10/2019 15:39:21 EXAM: Limited 2D, Doppler, and color-flow Echocardiogram Patient Location: In-Patient Room #: [facility] Status: routine BSA: 1.68 HR: 89 bpm BP: 176/95 mmHg Rhythm: NSR Other Information Study Quality: Good Indications RE-EVALUATE EF 2D Dimensions IVSd: 8.67 (7-11mm) LVOT Diam: 20.26 (18-24mm) LVDd: 55.01 mm PWd: 9.14 (7-11mm) LVDs: 52.19 (25-40mm) Aortic Root: 29.45 mm Volumes Left Atrial Volume (Systole) LA ESV Index: 43.00 mL/m2 Aortic Valve AoV Peak Omar.: 3.01 m/s AO Peak Gr.: 36.23 mmHg LVOT Max P.12 mmHg AO Mean Gr.: 21.96 mmHg LVOT Mean P.05 mmHg LVOT Max V: 0.73 m/s AO V2 VTI: 58.37 cm LVOT Mean V: 0.47 m/s CAROLEE (VTI): 0.77 cm2 LVOT V1 VTI: 13.96 cm Tricuspid Valve RAP Estimate: 5.00 mmHg TR Peak Gr.: 49.56 mmHg RVSP: 54.00 mmHg PA Pressure: 54.00 [place] [address] 2 D/M-MODE ECHOCARDIOGRAM Name: CURTIS LIN Room: [address] IN [facility]#: [id number] Admission: 05/10/19 Attend Phys: Nighat Veloz, Discharge: Date of : 31 Date of Service: 05/10/19 1628 Report #: [id number] Left Ventricle The left ventricle is normal size. akinesis noted of base of inferior wall and apex There is normal left ventricular wall thickness. Left ventricular systolic function is severely decreased. LVEF is 25-30%. This study is not technically sufficient to allow evaluation of the LV diastolic function. Right Ventricle The right ventricle is normal size. The right ventricular systolic function is normal. Atria Left atrium is moderately dilated. The right atrium size is normal. Aortic Valve Severe aortic valve sclerosis. Mild aortic regurgitation. moderate aortic stenosis. Mitral Valve There is mitral annular calcification. Moderate mitral regurgitation. Tricuspid Valve The tricuspid valve is normal in structure. Mild tricuspid regurgitation. estimated pa pressure 55 mm Hg Pulmonic Valve Pulmonic valve is not visualized. Great Vessels The aortic root is normal in size. IVC is normal in size and collapses >50% with inspiration. Pericardium There is no pericardial effusion. Left pleural effusion. <Conclusion> LVEF is 25-30%. Left atrium is moderately dilated. moderate aortic stenosis. Mild aortic regurgitation. Moderate [place] [address] 2 D/M-MODE ECHOCARDIOGRAM Name: CURTIS LIN Room: [address] IN [facility].#: [id number] Admission: 05/10/19 Attend Phys: Nighat Veloz, Discharge: Date of : 31 Date of Service: 05/10/191627 Report #: [id number] Mild tricuspid regurgitation. estimated pa pressure 55 mm Hg <ELECTRONICALLY SIGNED> By: Ruben Condon MD, FACC 05/10/191627 27 27 Ruben Condon MD, FACC /INF
--- NOTE | 2019-05-10 16:40 | EKG ---
[place] [address] ELECTROCARDIOGRAM REPORT Name: CURTIS LIN Room: [address] ADM IN .R.#: [id number] Admission: 05/10/19 Attend Phys: Nighat Veloz MD Discharge: Date of : 31 Report #: [id number] THIS REPORT FOR: //name// [facility] ED Test Date: 2019-05-10 Test Time: 11:45:03 Pat Name: CURTIS LIN Department: Room: [facility] Gender: F Therapeutic Support Staff: EV : 1930 Requested By: Hugo Lugo Order Number: [id number] MD: Ruben Condon Measurements Intervals [place] Rate: 98 P: MA: QRS: -43 QRSD: 108 T: 112 QT: 341 QTc: 436 Interpretive Statements sinus tachycardia with pac's Left anterior fascicular block LVH with secondary repolarization abnormality Anterior infarct, old Compared to ECG 12/10/2017 07:25:53 Left ventricular hypertrophy now present Myocardial infarct finding still present Electronically Signed On 05-10-2019 16:40:29 CDT by Ruben Condon [email or web address] <ELECTRONICALLY SIGNED> By: Ruben Condon MD, FACC 05/10/19 1640 1145 1145 Ruben Condon MD, [facility] /EPI
[2019-05-10 20:21] VITALS: BP 157/83
[2019-05-11] VITALS (12 sets, daily range): BP systolic 78–150; BP diastolic 47–86
[2019-05-11 04:39] LABS: HEMATOCRIT 31.5 % (37.0-47.0); HEMOGLOBIN 10.5 gm/dL (12.0-15.0); MCH 25.1 pg (26.0-34.0); MCHC 33.2 g/dL (28.0-37.0); MCV 75.6 fL (80.0-100.0); MPV 7.8 fl. (7.2-11.1); RBC 4.17 mil/uL (4.20-5.00); RDW-CV 16.5 % (10.5-14.5); WBC 7.1 thou/uL (4.0-11.0)
[2019-05-11 05:07] LABS: ALBUMIN 2.8 g/dL (3.4-5.0); ALKALINE PHOSPHATASE 72 U/L (46-116); ANION GAP 6 mmol/L (7-16); BUN 13 mg/dL (7-18); CALCIUM 8.7 mg/dL (8.5-10.1); CHLORIDE 106 mmol/L (98-107); CHOLESTEROL 142 mg/dL (<200); CO2 27 mmol/L (21-32); CREATININE 0.8 mg/dL (0.6-1.3); GLUCOSE 120 mg/dL (70-99); HDL CHOLESTEROL 44 mg/dL (>40); LDL CHOLESTEROL 86 mg/dL (<100); MAGNESIUM 1.8 mg/dL (1.8-2.4); POTASSIUM 4.1 mmol/L (3.5-5.1); SGOT 9 U/L (15-37); SGPT 5 U/L (30-65); SODIUM 139 mmol/L (136-145); TC:HDL 3.2 Ratio (Not establshd); TOTAL BILIRUBIN 0.5 mg/dL (<0.1-1.0); TRIGLYCERIDE 63 mg/dL (<150); VLDL 13 mg/dL (<40)
[2019-05-11 05:08] LABS: TROPONIN-I LEVEL 0.63 ng/mL (<0.06)
[2019-05-11 05:09] LABS: SERUM ASSESSMENT CLEAR
--- NOTE | 2019-05-11 08:25 | NUR ---
PT IS ABLE TO COMMUNICATE HER NEEDS TO STAFF WITH MINOR DIFFICULTY; SHE IS [id number]. CURRENT PAIN MEDICATION REGIMEN HAS BEEN ADEQUATE FOR CONTROLLING HER PAIN UP TO 0700. PURE WICK IN PLACE FOR STRESS INCONTINENCE; TOLERATED WELL BY PT.
--- NOTE | 2019-05-11 11:30 | NUR ---
ASSUMED CARE OF PT AT 0730. PT RESTING IN CHAIR WAITING FOR BREAKFAST. PT A&0X4, [place]. PT DENIES ANY PAIN OR SHORTNESS OF BREATH AT THIS TIME. PT TRACING SR/ST ON THE MANAGER REQUIREMENTS. ON 2L NC SAT 98%. PT UP WITH 1 WALKER TO BATHROOM. PURE WICK IN PLACE PER PT REQUEST. PT GOAL FOR TODAY IS LASIX, DIUERSIS, CARDIOLOGY CONSULT IN PLACE, MONITOR TROPONINS AND INCREASE ACTIVITY. AM ASSESSMENT CHARTED. MEDICATIONS PER OCT. PT REPOSITIONS SELF. HOURLY ROUNDING OBSERVED. BED IN LOW POSITION. CALL LIGHT WITHIN REACH. WILL CONTINUE PLAN OF CARE.
--- NOTE | 2019-05-11 12:17 | NUR ---
AT APPROXIMATELY 1150 PT SITTING IN RECLINER AND CALLED OUT STATING SHE WAS DIZZY. PT PLACED BACK TO BED AND BLOOD PRESSURE 78/47. PT PLACED IN REVERSE TRENDELENBERG- BLOOD PRESSURE UP TO 98/62. DR CESPEDES NOTIFIED. ORDERS RECEIVED FOR 500ML BOLUS NS. REFER TO EMAR. DR MILLER NOTIFIED. ORDERS RECEIVED TO DISCONTINUE COZAAR AND HOLD COREG IF SBP LESS THAN 100. PT CURRENT BLOOD PRESSURE 94/55. PT STATES SHE IS FEELING BETTER. WILL CONTINUE TO MONITOR CLOSELY.
--- NOTE | 2019-05-11 12:42 | EKG ---
[place] [address] ELECTROCARDIOGRAM REPORT Name: CURTIS LIN Room: [address] ADM IN M.R.#: [id number] Admission: 05/10/19 Attend Phys: Nighat Veloz MD Discharge: Date of : 31 Report #: [id number] THIS REPORT FOR: //name// [facility] Test Date: 2019-05-11 Test Time: 08:38:10 Pat Name: CURTIS LIN Department: Room: [address] Gender: F Inspector And Mender: : 1930 Requested By: Ruben Condon Order Number: [id number] Reading MD: Ruben Condon Measurements Intervals Pyatt Rate: 66 P: 5 PA: 143 QRS: -43 QRSD: 108 T: 140 QT: 443 QTc: 465 Interpretive Statements Sinus rhythm with pvc Left anterior fascicular block Abnormal R-wave progression, late transition LVH with secondary repolarization abnormality Compared to ECG 05/10/2019 11:45:03 Sinus tachycardia no longer present Myocardial infarct finding no longer present Electronically Signed On 05-11-2019 12:41:50 CDT by Ruben Condon [email or web address] <ELECTRONICALLY SIGNED> By: Ruben Condon MD, [facility] 05/11/19 1241 0838 0838 Ruben Condon MD, [facility] /EPI
--- NOTE | 2019-05-11 12:44 | CON ---
[address] [address] CONSULTATION Name: CURTIS LIN Room: [address] IN M.R.#: [id number] Admission: 05/10/19 Attend Phys: Nighat Veloz MD Discharge: Date of : 31 Report #: [id number] THIS REPORT FOR: //name// CC: Nighat Jack DATE OF SERVICE: 05/10/2019 CARDIOLOGY CONSULTATION HISTORY OF PRESENT ILLNESS: The patient is an 89-year-old single white female, who I was asked to see in the hospital today after she complained of being short of breath. The patient has an extensive past medical history. She previously was seen by my partner, Dr. David Ham back in 08/2014. She had a non-STEMI at that time. She presented with chest pain. He performed a cardiac catheterization in 08/2014 from the right radial artery. However, the brachial artery appeared to be occluded and he, therefore, performed the procedure from the right femoral artery. Results showed an ejection fraction of 70%. The LAD had a distal 90% stenosis. The diagonal artery had a 90% stenosis. The circumflex had a marginal branch with 70% stenosis. The right coronary artery had no significant stenosis. Dr. Ham recommended medical therapy at that time. I actually performed repeat cardiac catheterization 3 months later in 10/2014. At that time, there was normal left ventricular function. The apical portion of the LAD had a 90% narrowing. There is a 90% narrowing of the small diagonal branch and 60% narrowing of the ostium of the circumflex. The distal right coronary artery appeared to be acutely occluded with staining consistent with recent thrombosis. I then performed balloon angioplasty and placed a drug-eluting stent in the distal right coronary artery and there was no significant residual stenosis. She has done well since that time. She actually had a cholecystectomy a year ago. She states that she intermittently has throat tightness. She occasionally has episodes where she becomes short winded. Yesterday, she was working out in the yard when she became short of breath. She does have throat tightness. She went to see her doctor today and she was sent to the hospital and to be admitted. She denied any chest pain, palpitation, syncope, edema, fever or cough. PAST MEDICAL HISTORY: Significant for previous cholecystectomy, hysterectomy, hypertension, diabetes and hyperlipidemia. She has chronic back pain, takes hydrocodone. MEDICATIONS: On admission consists of losartan, Protonix, hydrocodone, Imdur, metformin and carvedilol. ALLERGIES: She has no known drug allergies. FAMILY HISTORY: [place] [address] CONSULTATION Name: CURTIS LIN Nakia Room: [address] IN ..#: [id number] Admission: 05/10/19 Attend Phys: Nighat Veloz MD Discharge: Date of : 31 Report #: [id number] SOCIAL HISTORY: She is , lives by herself. No smoking or alcohol abuse. REVIEW OF SYSTEMS: She has had no history of stroke, asthma, peptic ulcer disease, liver disease, kidney disease, cancer or psychiatric illness. PHYSICAL EXAMINATION: GENERAL: Revealed an elderly frail appearing female, lying in bed. She appeared in no acute distress. VITAL SIGNS: She had a blood pressure of 150/70, pulse is 80, and she is afebrile. HEENT: She was anicteric. Conjunctivae are pale. Mucous membranes moist. NECK: Veins do not appear distended. CHEST: No crackles in her lung simpson. CARDIOVASCULAR: Regular rate and rhythm. No significant murmur. ABDOMEN: Soft. EXTREMITIES: Had no edema. Dorsalis pedis pulse cannot be palpated. SKIN: Cool and dry. NEUROLOGIC: Nonfocal. LABORATORY DATA: Her ECG showed a sinus tachycardia, left ventricular hypertrophy, repolarization changes, and evidence of previous inferior infarction as well as previous anterior infarction. Her workup so far, she had an echocardiogram a year ago that showed ejection fraction of only 35%, left atrial enlargement, and aortic sclerosis. There was evidence of mild aortic stenosis, mild mitral regurgitation. The peak gradient across the aortic valve was noted to be 30 mmHg. Her x-ray today in the Emergency Room showed tortuous aorta, some atelectasis, no pulmonary edema. Her lab work today, sodium 138, creatinine 0.9, and glucose 164. Liver function studies were normal. Troponin 0.23, it was 0.49 a year ago. Her BNP is 14,059. Her white blood cell count 7.8 and hemoglobin 11.5. IMPRESSION AND RECOMMENDATIONS: 1. Coronary artery disease. Previous stenting. The patient has throat pain. In light of her advanced age and diffuse disease, I would not recommend repeat cardiac catheterization. I would continue medical therapy at this time. 2. Cardiomyopathy. The patient is on a beta sohail. I would consider adding an ARB. 3. Diabetes. 4. Chronic back pain. The patient is on narcotics. 5. Restless leg syndrome. <ELECTRONICALLY SIGNED> By: Ruben Condon MD, [facility] 05/11/19 1244 1511 [id number] Condon MD, FACC /nt
--- NOTE | 2019-05-11 14:40 | EKG ---
[place] [address] ELECTROCARDIOGRAM REPORT Name: CURTIS LIN Nakia Room: [address] ADM IN M.R.#: [id number] Admission: 05/10/19 Attend Phys: Nighat Veloz MD Discharge: Date of : 31 Report #: [id number] THIS REPORT FOR: //name// [facility] Test Date: 2019-05-11 Test Time: 11:58:17 Pat Name: CURTIS LIN Department: Room: [address] Gender: F Television Production Clerk: ARSLAN REYNA : 1930 Requested By: Nighat Veloz Order Number: [id number] Reading MD: Ruben Condon Measurements Intervals [place] Rate: 67 P: -19 NE: 137 QRS: -45 QRSD: 102 T: 153 QT: 437 QTc: 462 Interpretive Statements Sinus rhythm Left anterior fascicular block Anterior Q waves, possibly due to LVH LVH w/ repol abnormalities, possible ischemia Compared to ECG 05/11/2019 08:38:10 Ventricular premature complex(es) no longer present Electronically Signed On 05-11-2019 14:40:06 CDT by Ruben Condon [email or web address] <ELECTRONICALLY SIGNED> By: Ruben Condon MD, [facility] 05/11/19 1440 1158 1158 Ruben Condon MD, [facility] /EPI
--- NOTE | 2019-05-11 15:34 | NUR ---
SW met with pt and pt son Gio to complete initial assessment, introduce self, and SW role. Pt alert, oriented, [place]. Pt lives at home with son support; pt has another son who is supportive as well. Pt has a 4 wheeled rolling walker with a seat and pt son says that pt could use a new one. They think that pt has not received this walker or any other mobility device through Medicare within the last five years. SW said that pt would need to have a neurological diagnosis to be able to have a rollator covered by insurance. Pt son also interested in pt being able to receive HH services again at dc; pt has history with [facility]. SW/CM to continue to follow to assist with safe dc planning.
--- NOTE | 2019-05-11 17:21 | NUR ---
PT FEELING BETTER THIS AFTERNOON. BLOOD PRESSURE BETTER WELL-100'S/60'S-80'S. PT DENIES ANY DIZZINESS OR PAIN THIS AFTERNOON. PT RESTED WELL THIS AFTERNOON BEFORE DINNER. SON AT BEDSIDE AND UPDATED ON CURRENT PLAN OF CARE. CARDIOLOGY CONSULT IN PLACE. CONTINUES TO TRACE SR WITH OCCASIONAL PVC'S ON THE CROTCH PIECE BASTER. ON 2L NC SAT UPPER 90'S. PT UP WITH [address] WICK IN PLACE OFF AND ON THROUGHOUT SHIFT. MEDICATIONS PER OCT. PT REPOSITIONS SELF. HOURLY ROUNDING OBSERVED. BED IN LOW POSITION. CALL LIGHT WITHIN REACH. WILL CONTINUE PLAN OF CARE.
[2019-05-12] VITALS (14 sets, daily range): BP systolic 57–144; BP diastolic 30–77
[2019-05-12 05:21] LABS: HEMATOCRIT 31.1 % (37.0-47.0); HEMOGLOBIN 10.4 gm/dL (12.0-15.0); MCH 25.3 pg (26.0-34.0); MCHC 33.5 g/dL (28.0-37.0); MCV 75.6 fL (80.0-100.0); MPV 7.7 fl. (7.2-11.1); RBC 4.11 mil/uL (4.20-5.00); RDW-CV 16.4 % (10.5-14.5); WBC 6.7 thou/uL (4.0-11.0)
[2019-05-12 05:38] LABS: CALCIUM 8.5 mg/dL (8.5-10.1); CREATININE 1.1 mg/dL (0.6-1.3); MAGNESIUM 1.6 mg/dL (1.8-2.4); POTASSIUM 3.9 mmol/L (3.5-5.1); TROPONIN-I LEVEL 0.41 ng/mL (<0.06)
--- NOTE | 2019-05-12 10:30 | NUR ---
PT IS ABLE TO COMMUNICATE HER NEEDS TO STAFF WITH MINOR DIFFICULTY; SHE IS [id number]. CURRENT PAIN MEDICATION REGIMEN HAS BEEN ADEQUATE FOR CONTROLLING HER PAIN UP TO THIS TIME. POSSIBLE DISCHARGE LATER TODAY. PURE-WICK EXTERNAL CATH IN PLACE; TOLERATED WELL BY PT.
--- NOTE | 2019-05-12 10:30 | NUR ---
Following for d/c planning needs. Reviewed chart and spoke with banquet stewardess and hospitalist. Pt plans on returning home with home health. Called [facility] and faxed referral. Will fax orders when available. Pt is not medically ready for d/c today. [facility] [phone]; fax [phone]
--- NOTE | 2019-05-12 11:37 | NUR ---
ASSIMED CARE OF PATIENT THIS AM AT 0730. PATIENT IS ALERT AND ORIENTED X 4. SHE DENIES PAIN AND DISCOMFORT. DR MILLER IN TO ROUND AND SAID PATIENT WAS STABLE ENOUGH TO GO HOME. PATIENT CONTINUES INCONTINENT OF URINE THIS AM. SHE SEEMS ABLE TO TURN HERSELF IN BED. TELE SHOWS NSR. WILL CONTINUE TO MONITOR.
--- NOTE | 2019-05-12 12:48 | EKG ---
[place] [address] ELECTROCARDIOGRAM REPORT Name: SMITAMaria LuisaCURTIS Room: [address] ADM IN M.R.#: [id number] Admission: 05/10/19 Attend Phys: Nighat Veloz MD Discharge: Date of : 31 Report #: [id number] THIS REPORT FOR: //name// [facility] Test Date: 2019-05-12 Test Time: 08:09:54 Pat Name: CURTIS LIN Department: Room: [address] Gender: F Lime Vat Tender: : 1930 Requested By: Ruben Condon Order Number: [id number] Reading MD: Ruben Condon Measurements Intervals [place] Rate: 63 P: 4 MO: 145 QRS: -45 QRSD: 109 T: 143 QT: 447 QTc: 458 Interpretive Statements Sinus rhythm Left anterior fascicular block Abnormal R-wave progression, late transition LVH w/ repol abnormalities, possible ischemia Compared to ECG 05/11/2019 11:58:17 Possible ischemia still present Electronically Signed On 05-12-2019 12:47:57 CDT by Ruben Condon [email or web address] <ELECTRONICALLY SIGNED> By: Ruben Condon MD, [facility] 05/12/19 1247 0809 0809 Ruben Condon MD, [facility] /EPI
[2019-05-13] VITALS (7 sets, daily range): BP systolic 110–175; BP diastolic 58–82
--- NOTE | 2019-05-13 15:22 | NUR ---
PT ORDERS RECEIVED AND ACKNOWLEDGED. PT PREVIOUSLY EVALUATED BY PT SERVICES ON 05/12/19. PT WAS NOTED TO BE MOD INDEP AND AT BASELINE STATUS AT THAT TIME THEREFORE DISCHARGED FROM ACUTE PT SERVICES. SPOKE WITH NSG, INDICATES NO ACUTE MEDICAL CHANGE IN PT'S STATUS. SPOKE WITH PT AND FAMILY. THEY INDICATE PT CONTINUES TO BE MOD INDEP W/ RW AND DENY A CHANGE IN STATUS. PT AND FAMILY INDICATE NO NEED FOR ACUTE PT SERVICES AT THIS TIME. WILL DISCHARGE PT ORDERS WITH PT REMAINING AT MOD INDEP W/ RW. PT/FAMILY VOICE NO CONCERNS WITH DISCHARGE BACK TO HOME WITH CHILDREN(S) SUPPORT.
[2019-05-14] VITALS: BP 150/77
[2019-05-14 04:00] VITALS: BP 127/68
[2019-05-14 05:07] LABS: HEMOGLOBIN 11.2 gm/dL (12.0-15.0)
--- NOTE | 2019-05-14 05:07 | NUR ---
PT CARE ASSUMED AT 1930. SAT MAINTAINED IN RA. ALERT AND ORIENTED X4. C/O PAIN, MEDICATION GIVEN PER EMAR. CALL LIGHT WITHIN REACH AND BED IN LOW POSITION. HOURLY ROUNDING DONE FOR PT SAFETY.
[2019-05-14 05:57] LABS: % SATURATION 12 % (20-39); IRON 38 ug/dL (50-175)
[2019-05-14 08:00] VITALS: BP 128/68
[2019-05-14 09:36] VITALS: BP 137/75
--- NOTE | 2019-05-14 17:45 | NUR ---
ASSESSMENT DOCUMENTED. MEDS GIVEN PER E-MAR. IV PATENT. PT REPORTED NOT FEELING WELL THIS AM, BUT FELT BETTER THE MORNING PASSED AND WAS ABLE TO EAT. PTS SON REMAINED AT BEDSIDE. NO REPORTS OF PAIN. WILL CONTINUE WITH PLAN OF CARE.
[2019-05-14 18:39] VITALS: BP 128/50
[2019-05-14 19:40] VITALS: BP 142/70
[2019-05-15] VITALS: BP 120/63
[2019-05-15 04:00] VITALS: BP 138/65
--- NOTE | 2019-05-15 05:56 | NUR ---
PT CARE ASSUMED AT 1930. SAT MAINTAINED IN RA. ALERT AND ORIENTED X4. CALL LIGHT WITHIN REACH AND BED IN LOW POSITION. C/O PAIN, MEDICATION GIVEN PER EMAR. HOURLY ROUNDING DONE FOR PT SAFETY.
[2019-05-15 08:00] VITALS: BP 124/58
[2019-05-15 11:30] VITALS: BP 110/59
[2019-05-15 11:32] VITALS: BP 121/71
--- NOTE | 2019-05-15 11:39 | NUR ---
ASSUMED CARE OF PATIENT THIS AM AT 0730. PATIENT IS ALERT AND ORIENTED X 4. SHE C/O PAIN THIS AM. PAIN MEDICATION GIVEN. PATIENT ASSISTED UP TO THE CHAIR. SHE SAYS SHE HAS ALSO BEEN HAVING DIARRHEA. NO STOOLS SEEN THIS AM. PATIENT'S BP IS STABLE THIS AM. TELE SHOWS SR WITH PACS AND PATIENT HAD A SHORT BURST OF SVT THIS AM THAT ABRUPTLY STOPPED ON IT'S OWN. DOCTORS PLAN TO DISCHARGE PATIENT TODAY.
[2019-05-15] MEDS ORDERED: SPIRONOLACTONE25 M1 PO (13:12)
[2019-05-15] MEDS ORDERED: LIPITOR40 MG PO (13:27)
[2019-05-15] MEDS ORDERED: LASIX 20 MG TAB20 MG PO (13:30)
[2019-05-15] MEDS ORDERED: PLAVIX 75 MG TA75 M1 PO (13:53)
[2019-05-15] MEDS ORDERED: NITROGLYCERIN0.4 MG SUBLING (13:56)
[2019-05-15] MEDS ORDERED: LEVAQUIN 500 M500 M2 PO (13:58)
[2019-05-15] MEDS ORDERED: TOPROL XL25 MG PO (14:00)
[2019-05-15] MEDS ORDERED: ASPIR 8181 MG PO (14:10)
[2019-05-15] MEDS ORDERED: LASIX 40 MG TAB40 M2 PO (15:05)
--- NOTE | 2019-05-15 15:58 | NUR ---
Pt dc home today with pt son and orders/med list faxed to [facility], pt/family preference for HH services.
== END 2019-05-15 17:21 | disposition home health service (06) | DRG 280 ==
LOC: M.ERS 11:33 → M.2W 12:51 → M.TBA-ER 12:51 → M.2W 14:40
PROVIDERS: Emergency Medicine; Internal Medicine Cardiovascular Disease; ADMIT Internal Medicine
DX: I21.4 Non-ST elevation (NSTEMI) myocardial infarction (principal); I50.23 Acute on chronic systolic (congestive) heart failure; J15.9 Unspecified bacterial pneumonia; I42.9 Cardiomyopathy, unspecified; J98.11 Atelectasis; I11.0 Hypertensive heart disease with heart failure; E11.9 Type 2 diabetes mellitus without complications; I25.10 Atherosclerotic heart disease of native coronary artery without angina pectoris; G25.81 Restless legs syndrome; E78.5 Hyperlipidemia, unspecified; G89.29 Other chronic pain; M54.9 Dorsalgia, unspecified; M19.90 Unspecified osteoarthritis, unspecified site; I35.0 Nonrheumatic aortic (valve) stenosis; D64.9 Anemia, unspecified; I95.9 Hypotension, unspecified; Z90.710 Acquired absence of both cervix and uterus; Z95.5 Presence of coronary angioplasty implant and graft; I25.2 Old myocardial infarction; Z79.899 Other long term (current) drug therapy; Z79.84 Long term (current) use of oral hypoglycemic drugs; Z90.49 Acquired absence of other specified parts of digestive tract; Z80.1 Family history of malignant neoplasm of trachea, bronchus and lung

== ENCOUNTER 2020-02-21 15:20 | Inpatient (IN) | payer MEDICARE, OTHER ==
[~2020-02-21] VITALS: Ht 157.5 cm; Wt 63.5 kg
[~2020-02-21 15:20] MED LIST changes: +LASIX 20 MG TAB20 MG PO; +LEVAQUIN 500 M500 M2 PO; +LIPITOR40 MG PO; +PLAVIX 75 MG TA75 M1 PO; +SPIRONOLACTONE25 M1 PO; +TOPROL XL25 MG PO
[2020-02-21 15:43] VITALS: BP 133/82
[2020-02-21 15:48] LABS: URINE BILIRUBIN NEGATIVE (Negative); URINE BLOOD NEGATIVE (Negative); URINE CLARITY CLEAR; URINE COLOR YELLOW; URINE GLUCOSE-RANDOM NEGATIVE (Negative); URINE KETONES NEGATIVE (Negative); URINE LEUKOCYTES-REFLEX 1+ (Negative); URINE NITRITE-REFLEX NEGATIVE (Negative); URINE PROTEIN NEGATIVE (Negative); URINE UROBILINOGEN 0.2 E.U./dl (0.2-1.0)
[2020-02-21 16:06] LABS: HEMATOCRIT 36.6 % (37.0-47.0); HEMOGLOBIN 11.8 gm/dL (12.0-15.0); MCH 23.5 pg (26.0-34.0); MCHC 32.1 g/dL (28.0-37.0); MCV 73.1 fL (80.0-100.0); MPV 7.6 fl. (7.2-11.1); NUCLEATED RBCS 0 /100WBC; PLATELET COUNT* 449 thou/uL (150-400); RBC 5.01 mil/uL (4.20-5.00); RDW-CV 16.4 % (10.5-14.5); WBC 16.3 thou/uL (4.0-11.0)
[2020-02-21 16:08] LABS: SQUAMOUS 4-10 Moderate /LPF (0-3); TRANSITIONAL EPITHEL CELL 0-3 Few /LPF (None Seen)
[2020-02-21 16:09] LABS: BACTERIA-REFLEX 1-9 Few /HPF (None Seen); CRYSTALS None Seen /LPF (None Seen); HYALINE CASTS 4-10 Moderate /LPF (None Seen); URINE RBC 0-2 Rare /HPF (0-2); URINE WBC-REFLEX 6-15 Few /HPF (0-5)
[2020-02-21 16:22] LABS: ANION GAP 9 mmol/L (7-16); BUN 28 mg/dL (7-18); CALCIUM 8.8 mg/dL (8.5-10.1); CHLORIDE 96 mmol/L (98-107); CO2 30 mmol/L (21-32); CREATININE 1.1 mg/dL (0.6-1.3); GLUCOSE 221 mg/dL (70-99); POTASSIUM 3.4 mmol/L (3.5-5.1); SODIUM 135 mmol/L (136-145)
[2020-02-21 16:25] LABS: ALBUMIN 3.7 g/dL (3.4-5.0); ALKALINE PHOSPHATASE 105 U/L (46-116); LIPASE 57 U/L (73-393); NT-PRO BRAIN NAT PEPTIDE > 35000 pg/mL (<300); SGOT 14 U/L (15-37); SGPT 21 U/L (30-65); TOTAL BILIRUBIN 0.9 mg/dL (<0.1-1.0); TOTAL PROTEIN 7.8 g/dL (6.4-8.2)
[2020-02-21 16:37] LABS: PLATELET ESTIMATE INCREASED
[2020-02-21 16:38] LABS: ABSOLUTE EOSINOPHILS 0.2 thou/uL (0.0-0.7); ABSOLUTE LYMPHOCYTES 0.7 thou/uL (0.8-5.3); ABSOLUTE NEUTROPHILS 14.5 thou/uL (1.6-8.1); ANISOCYTOSIS Occasional; HYPOCHROMASIA 1+; POIKILOCYTOSIS 1+
[2020-02-21 20:00] VITALS: BP 141/70
--- NOTE | 2020-02-21 21:41 | NUR ---
ROOM NOT CLEANED, CHANGED TO 228
[2020-02-21 21:50] VITALS: BP 124/70
[2020-02-22 04:00] VITALS: BP 136/84
--- NOTE | 2020-02-22 05:20 | NUR ---
PT CARE ASSUMED AT 1930. SAT MAINTAINED IN RA THROUGHOUT THE NIGHT. DENIES PAIN AND SOB. CALL LIGHT WITHIN REACH AND BED IN LOW POSITION. HOURLY ROUNDING DONE FOR PT SAFETY.
[2020-02-22 08:00] VITALS: BP 126/81
--- NOTE | 2020-02-22 10:52 | EKG ---
[place] [address] ELECTROCARDIOGRAM REPORT Name: CURTIS LIN Room: [address] ADM IN .R.#: [id number] Admission: 02/21/20 Attend Phys: Fahad Marti Discharge: Date of : 31 Date of Service: 02/21/20 1547 Report #: [id number] THIS REPORT FOR: //name// [facility] ED Test Date: 2020-02-21 Test Time: 15:47:39 Pat Name: CURTIS LIN Department: Room: [facility] Gender: F Glaze Wiper: SANGEETHA : 1930 Requested By: Emili Medina Order Number: [id number] MD: Ruben Condon Measurements Intervals [place] Rate: 99 P: 42 [place]: 163 QRS: -44 QRSD: 116 T: 122 QT: 374 QTc: 480 Interpretive Statements Sinus rhythm poor r wave progression left axis LVH with IVCD, LAD and secondary repol abnrm Borderline prolonged QT interval Baseline wander in lead(s) II,III,aVR,aVL,aVF,V1,V2,V3,V4,V5,V6 Compared to ECG 05/12/2019 08:09:54 Intraventricular conduction delay now present rate increased Possible ischemia no longer present Electronically Signed On 02-22-2020 10:52:32 CDT by Ruben Condon [email or web address] <ELECTRONICALLY SIGNED> By: Ruben Condon MD, [facility] 02/22/20 1052 1547 1547 Ruben Condon MD, [facility] /EPI
--- NOTE | 2020-02-22 11:46 | 2DMMODE ---
[place] [address] 2 D/M-MODE ECHOCARDIOGRAM Name: CURTIS LIN Nakia Room: [address] IN .R.#: [id number] Admission: 02/21/20 Attend Phys: Fahad Marti Discharge: Date of : 31 Date of Service: 02/22/20 1145 Report #: [id number] THIS REPORT FOR: cc: Candice Jack,David Mtz MD [facility] ~ ADDENDUM APPROVED REPORT Study performed: 02/22/2020 10:14:47 EXAM: Comprehensive 2D, Doppler, and color-flow Echocardiogram Patient Location: In-Patient BSA: 1.64 HR: 74 bpm BP: 126/81 mmHg Other Information Study Quality: Good Indications Congestive Heart Failure Dyspnea 2D Dimensions IVSd: 12.57 (7-11mm) LVOT Diam: 18.28 (18-24mm) LVDd: 49.19 mm PWd: 10.92 (7-11mm) Ascending Ao: 32.37 (22-36mm) LVDs: 44.09 (25-40mm) Aortic Root: 31.83 mm Volumes Left Atrial Volume (Systole) LA ESV Index: 38.50 mL/m2 Aortic Valve AoV Peak Omar.: 3.17 m/s AO Peak Gr.: 40.19 mmHg LVOT Max P.77 mmHg AO Mean Gr.: 26.05 mmHg LVOT Mean P.06 mmHg LVOT Max V: 0.66 m/s AO V2 VTI: 66.39 cm LVOT Mean V: 0.49 m/s CAROLEE (VTI): 0.57 cm2 LVOT V1 VTI: 14.51 [place] [address] 2 D/M-MODE ECHOCARDIOGRAM Name: CURTIS LIN Room: [address]#: [id number] Admission: 02/21/20 Attend Phys: Fahad Marti Discharge: Date of : 31 Date of Service: 02/22/20 1145 Report #: [id number] E/A Ratio: 1.18 MV Decel. Time: 124.32 ms MV E Max Omar.: 1.14 m/s MV PHT: 36.05 ms MVA (PHT): 6.10 cm2 TDI E/Lateral E': 22.80 E/Medial E': 28.50 Medial E' Omar.: 0.04 m/s Lateral E' Omar.: 0.05 m/s Pulmonary Valve PV Peak Omar.: 0.74 m/s PV Peak Gr.: 2.21 mmHg Tricuspid Valve RAP Estimate: 10.00 mmHg TR Peak Gr.: 38.55 mmHg RVSP: 48.55 mmHg PA Pressure: 48.55 mmHg Left Ventricle The left ventricle is normal size. There is severe global hypokinesis. The apex appears akinetic. Mild concentric left ventricular hypertrophy. Left ventricular ejection fraction is severely decreased. LVEF is 20-25%. Transmitral Doppler flow pattern suggests restrictive physiology. Right Ventricle The right ventricle is normal size. The right ventricular systolic function is normal. Atria The left atrium size is normal. The right atrium size is normal. Aortic Valve The Aortic valve is sclerotic. Trace aortic regurgitation. Severe aortic stenosis. Mitral Valve There is mitral annular calcification. Mild to moderate mitral regurgitation. No evidence of mitral valve stenosis. Tricuspid Valve The tricuspid valve is normal in structure. Mild to moderate tricuspid regurgitation. The RVSP is 50-55 [place] [address] 2 D/M-MODE ECHOCARDIOGRAM Name: CURTIS LIN Room: [address]#: [id number] Admission: 02/21/20 Attend Phys: Fahad Marti Discharge: Date of : 31 Date of Service: 02/22/20 1145 Report #: [id number] Pulmonic Valve The pulmonary valve is normal in structure. There is no pulmonic valvular regurgitation. Great Vessels The aortic root is normal in size. Pericardium There is no pericardial effusion. Pleural effusion. <Conclusion> The left ventricle is normal size. Mild concentric left ventricular hypertrophy. Left ventricular ejection fraction is severely decreased. LVEF is 20-25%. Transmitral Doppler flow pattern suggests restrictive physiology. Trace aortic regurgitation. Severe aortic stenosis. Mild to moderate mitral regurgitation. Mild to moderate tricuspid regurgitation. The RVSP is 50-55 mmHg. Pleural effusion. <ELECTRONICALLY SIGNED> By: David Ham MD, FACC 02/22/20 1145 1145 1145 David Ham MD, FACC /INF
[2020-02-22 12:14] VITALS: BP 110/52; BP 125/85
[2020-02-22 15:22] LABS: HEMOGLOBIN 11.8 gm/dL (12.0-15.0); MCH 23.3 pg (26.0-34.0); MCV 72.9 fL (80.0-100.0); MPV 8.2 fl. (7.2-11.1); RBC 5.08 mil/uL (4.20-5.00); RDW-CV 16.7 % (10.5-14.5); WBC 12.9 thou/uL (4.0-11.0)
[2020-02-22 15:32] LABS: CALCIUM 8.7 mg/dL (8.5-10.1); POTASSIUM 3.9 mmol/L (3.5-5.1)
[2020-02-22 15:35] LABS: APTT 25.5 Seconds (25.0-31.3); INR 1.3; PROTIME 12.9 Seconds (9.20-11.50)
--- NOTE | 2020-02-22 16:23 | NUR ---
NETTA met with pt and one of pt sons to complete initial assessment. Pt lives at home with her son (who was not the son present in pt room today). Pt has hx of [facility] and pt/pt family preference for [facility] services if needed at dc, fax H&P, face sheet and orders/med list to fax [phone]. SW provided senior blue book for resources/referrals for in home assistance beyond what HH would offer. No other dc needs expressed at this time.
[2020-02-22 16:47] VITALS: BP 116/65
--- NOTE | 2020-02-22 18:40 | NUR ---
patient resting in chair in room. 2l per nasal canula for patient comfort although her resting O2 saturation was measured at 97% on room air. she is very anxious at times. son at bedside today. thoracentesis today with 900 ml removed from right side. hourly rounding completed for patient safety.
[2020-02-22 20:20] VITALS: BP 114/68
[2020-02-22 23:50] VITALS: BP 136/89
[2020-02-23 04:57] VITALS: BP 141/82
[2020-02-23 05:28] LABS: CALCIUM 8.6 mg/dL (8.5-10.1); CREATININE 1.1 mg/dL (0.6-1.3)
--- NOTE | 2020-02-23 05:33 | NUR ---
PT CARE ASSUMED AT 1930. SAT MAINTAINED IN RA. PT IS ANXIOUS. ALERT AND ORIENTED X4 BUT FORGETFUL. CALL LIGHT WITHIN REACH AND BED IN LOW POSITION. HOURLY ROUNDING DONE FOR PT SAFETY.
[2020-02-23 07:43] VITALS: BP 138/75
[2020-02-23 12:42] VITALS: BP 114/75
--- NOTE | 2020-02-23 16:32 | NUR ---
PATIENT RESTING IN CHAIR ON ROOM. SON AT BEDSIDE. VSS AND PATIENT IS NORT REQUIRING SUPPLEMENTAL OXYGEN. UP TO BSC WITH STANDBY ASSISTANCE. SHE DOES COMPLAIN OPF FEELING OF SHORTNESS OF BREATH BUT BREATH SOUNDS ARE CLEAR/DIMINISHED AND O2 SATURATION OON ROOM AIR IS GREATER THAN 95%. HOURLY ROUNDING COMPLETD OFRPATINET SAFETY.
[2020-02-23 17:15] VITALS: BP 131/72
[2020-02-23 20:00] VITALS: BP 128/98
[2020-02-24 00:07] VITALS: BP 130/78
[2020-02-24 04:57] LABS: CALCIUM 8.6 mg/dL (8.5-10.1); CREATININE 1.3 mg/dL (0.6-1.3); POTASSIUM 4.4 mmol/L (3.5-5.1)
[2020-02-24 05:19] VITALS: BP 136/80
[2020-02-24 08:30] VITALS: BP 130/110
[2020-02-24 12:00] VITALS: BP 129/70
[2020-02-24 16:00] VITALS: BP 122/73
--- NOTE | 2020-02-24 19:34 | NUR ---
I ASSUMED CARE OF THE PATIENT AT 0700. SHE IS ALERT AND ORIENTED X4 AND IS UP WITH SBA AND A WALKER. BED ALARM AND CHAIR ALARM ARE ON. BED IS IN THE LOW LOCKED POSITION AND CALL LIGHT IS IN REACH. HOURLY ROUNDING IS COMPLETED AND PATIENT NEEDS ARE MET. PAIN IS MANAGED WITH PRN MEDS. PATIENT COMPLAINS THAT HER MOUTH IS SORE AND NEW ORDERS ARE OBTAINED. BLOOD SUGAR IS MAINTAINED AND MANAGED WITH INSULIN. FLUID RESTRICTION IS KEPT TO LESS THAN 2 LITERS. WILL CONTINUE TO MONITOR.
[2020-02-24 20:00] VITALS: BP 116/72
[2020-02-25] VITALS: BP 109/80
[2020-02-25 04:00] VITALS: BP 123/72
[2020-02-25 07:50] VITALS: BP 122/73
--- NOTE | 2020-02-25 08:04 | NUR ---
PT ALERT X3. PAIN MEDICATION GIVEN @ BEDTIME. PT SLEPT THROUGH OUT SHIFT AND (PT DID NOT SLEEP WELL THE NIGHT BEFORE OBSERVED BY THIS RN). CALL LIGHT IN REACH. HOURLY ROUNDING FOR SAFETY.
[2020-02-25 09:16] LABS: CALCIUM 8.4 mg/dL (8.5-10.1); CREATININE 1.3 mg/dL (0.6-1.3); POTASSIUM 5.5 mmol/L (3.5-5.1)
[2020-02-25 12:18] VITALS: BP 133/82
[2020-02-25 16:12] VITALS: BP 121/77
--- NOTE | 2020-02-25 18:47 | NUR ---
PATIENT RESTING IN BED. PATIENT SLEPT MOST OF DAY. PATIENT HAS POOR APPETITE AND POOR FLUID INTAKE. PATIENT IS UP STANDBY ASSIST TO COMMODE. PATIENT REFUSED TO SIT IN CHAIR FOR MEALS. PATIENT HAD HYDROCODONE THIS AM FOR PAIN. PATIENT DENIES ANY NEEDS AT THIS TIME. CALL YASH AGUILAR.
[2020-02-25 20:00] VITALS: BP 119/71
[2020-02-26] VITALS (7 sets, daily range): BP systolic 104–136; BP diastolic 62–86
--- NOTE | 2020-02-26 06:01 | NUR ---
ASSESSMENTS COMPLETED AT BEDSIDE, PLEASE REFER TO CHARTING FOR DETAILS. MEDICATIONS ADMINISTERED PER MAR. HOURLY ROUNDING COMPLETED FOR SAFETY. FALL PERCAUTIONS IN PLACE, BED ALARM ON AND CALL LIGHT WITHIN REACH.
--- NOTE | 2020-02-26 16:37 | NUR ---
PATIENT ALERT AND ORIENTED X3, REMAINED SATISFIED WITH PAIN MANANGEMENT, UP WITH ASSIST TO BEDSIDE COMMODE, IS ON 2L NC, PATIENTS STATES "I CAN'T BREATHE", WAITING ON THORANCENTESIS PROCECURE, SITTING IN CHAIR WITH CALL LIGHT WITHIN REACH, SON AT BEDSIDE.
--- NOTE | 2020-02-26 17:25 | NUR ---
SW was informed in the morning of pt possible dc today but then was informed by nursing that pt would not dc today after all and would have a thoracentesis. SW to continue to follow to assist with finalizing safe dc plans when pt is ready to dc.
[2020-02-27 05:12] VITALS: BP 147/83
[2020-02-27 08:00] VITALS: BP 141/69
[2020-02-27] MEDS ORDERED: DOXYCYCLINE 10100 MG PO (11:34)
[2020-02-27] MEDS ORDERED: PHENERGAN 25 MG25 M1 PO (11:34)
[2020-02-27 12:35] VITALS: BP 128/67
--- NOTE | 2020-02-27 14:52 | NUR ---
ASSUMED PT CARE AT 0730, PT RESTING IN BED STATING "I CAN'T BREATHE" SATS OBTAINED IN 80'S, PT ORIGINALLY ON 2L, BUMPED UP TO 4L, SAT 100% SO I TITRATED IT BACK DOWN TO 2L, SAT 97% AND SATS HAVE BEEN ABOVE 92% SO FAR SINCE THEN, THOUGH PT CONTINUES TO STATE "I CAN'T BREATHE" PT IS ALERT AND ORIENTED TO SELF BUT FORGETFUL. ENCOURAGED SLOW, DEEP BREATHING AND BREATHING THROUGH NOSE ENCOURAGED. PT ALSO C/O PAIN, TREATED W/ NORCO W/ RELIEF. PT CLEARED FOR DC BUT WAS UNCOOPERATIVE W/ DC'ING TODAY, STATES SHE WILL DC TOMORROW. EDUCATED PT ON US SENDING HER HOME W/ OXYGEN AND HOME HEALTH SO SHE WILL HAVE HELP AT HOME. CONSULTED AND SPOKE W/ PT TO ALSO EDUCATE ON DC TODAY. SON AT BEDSIDE MOST OF MORNING AND UPDATED ON POC. PT GOAL IS TO WORK W/ NURSING STAFF ON DC AND KEEP SATS ABOVE 92%. AM ASSESSMENT CHARTED, MEDS PER MAR, HOURLY ROUNDING OBSERVED, FALL PRECAUTIONS IN PLACE, CALL LIGHT W/IN REACH, WILL CONTINUE POC.
--- NOTE | 2020-02-27 16:03 | NUR ---
Pt to dc home with son today. NETTA called son Gio who would be the son to provide pt ride home and left detailed message about pt dc plan. NETTA called pt other son who pt lives with and informed of dc plan for today with HH to follow and oxygen for nighttime. NETTA faxed referral and orders to pt/family preference of [facility] and their intake called to confirm acceptance. NETTA ordered oxygen for nighttime through pt/family preference of [facility] and received confirmation with Kayleigh at [facility] that the agency will deliver to pt home prior to nighttime. Pt nurse aware.
--- NOTE | 2020-02-27 17:50 | NUR ---
DC ORDERS RECEIVED. DC INSTRUCTIONS AND F/U APPTS GIVEN TO PT AND SON, PT (DPOA) IS FORGETFUL AND CONFUSED BUT SON COMMUNICATES UNDERSTANDING. IV AND EMAIL DESIGNER REMOVED. PT DC'D BY WC W/ NURSING STAFF AND SON TO SON'S PERSONAL VEHICLE AT APPROX 1735.
--- NOTE | 2020-02-29 10:05 | PATH ---
[address] [address] PATHOLOGY RPT PROCEDURE Name: CURTIS LIN Room: [address]#: [id number] Admission: 02/21/20 Date of : 32 Discharge: 02/27/20 Report #: [id number] Path Case #: [id number] Note [facility] Accession Number: [id number] TESTS RESULT FLAG UNITS REF RANGE LAB Clinician Provided Cytology Information No. of containers..01 Other (Miscellaneous) Source: PLEURAL FLUID DIAGNOSIS: 02 PLEURAL FLUID NEGATIVE FOR MALIGNANT CELLS. REACTIVE MESOTHELIAL CELLS AND FEW INFLAMMATORY CELLS. CELLULAR DEGENERATION IS PRESENT. THIS INTERPRETATION INCLUDES EVALUATION OF A CELL BLOCK. Signed out by: 02 Jose Nicholas MD, Pathologist NPI- [id number] Performed by: 01 Gretchen Mendoza, Assembly Lead Person ([facility]) Gross description: 01 80ML, CLOUDY YELLOW, 1 TP 1 CB /LCS 02/27/2020 1329 Local FLAG LEGEND: L-Low Normal,H-High Normal,LL-Alert Low,HH-Alert High <-Panic Low,>-Panic High,A-Abnormal,AA-Critical Abnormal Performed at: [address] [place] [address] Arthur Ruth MD, [address] [place] [address] [address] [place] [address] Jose Nicholas MD, Specimen Comment: A courtesy copy of this report has been sent to [phone], [phone] Specimen Comment: [id number] Specimen Comment: Report sent to Specimen Comment: Report sent to / DR SALMERON Specimen Comment: A duplicate report has been generated due to demographic updates. Performed at: [address], [place], [place] [id number] MD Arthur Ruth MD Phone: [phone]
== END 2020-02-27 17:35 | disposition home health service (06) | DRG 871 ==
LOC: M.ERS 15:20 → M.TBA-ER 16:42 → M.2W 16:42
PROVIDERS: Internal Medicine Cardiovascular Disease; Physician Assistant; Registered Nurse; ADMIT Internal Medicine; ATTEND Internal Medicine
PROC: 0W993ZZ Drainage of Right Pleural Cavity, Percutaneous Approach (ICD-10-PCS; 2020-02-22)
PROC: 0W9B3ZZ Drainage of Left Pleural Cavity, Percutaneous Approach (ICD-10-PCS; principal; 2020-02-27)
DX: A41.9 Sepsis, unspecified organism (principal); I50.23 Acute on chronic systolic (congestive) heart failure; J96.21 Acute and chronic respiratory failure with hypoxia; N39.0 Urinary tract infection, site not specified; J91.8 Pleural effusion in other conditions classified elsewhere; G25.81 Restless legs syndrome; I25.10 Atherosclerotic heart disease of native coronary artery without angina pectoris; I08.0 Rheumatic disorders of both mitral and aortic valves; I48.0 Paroxysmal atrial fibrillation; E78.5 Hyperlipidemia, unspecified; I25.5 Ischemic cardiomyopathy; E11.9 Type 2 diabetes mellitus without complications; I11.0 Hypertensive heart disease with heart failure; Z20.828 Contact with and (suspected) exposure to other viral communicable diseases; Z95.5 Presence of coronary angioplasty implant and graft; Z90.710 Acquired absence of both cervix and uterus; Z79.82 Long term (current) use of aspirin; Z79.84 Long term (current) use of oral hypoglycemic drugs; Z79.899 Other long term (current) drug therapy